=== PATIENT | female | born 1945 | race Caucasian/White ===

== ENCOUNTER → 2017-02-27 | Outpatient (CLI) | payer MEDICARE ==
[2016-08-23 14:30] VITALS: BP 123/67
[~2017-02-27] MED LIST: ALPR0.5T6 PO; ALPR1TAB10 PO; AMLO-254 PO; AMLO10TA2 PO; AMLO5TAB2 PO; ASPI-482 PO; ATOR10TA PO; CARV6.252 PO; CHOL10003 PO; DICY10CA3 PO; FENT1PAT15 TD; FISH1CAP PO; GABA-586 PO; GINK500C PO; GREEN TEA SLIM; HYDR-2758 PO; HYDR-971 PO; LACT1CAP29 PO; LEVO75TA5 PO; LOSA100T6 PO; METF500T PO; METH500T5 PO; MILN50TA PO; MULT1TAB52 PO; NAPR375T5 PO; OMEP20TA8 PO; POLY17PO29 PO; RANI300C PO; TRAZ50TA15 PO; TRIA15OI TP
--- NOTE | 2017-02-27 10:06 | KCIC ---
MRI Lumbar Spine without contrast History: Lumbar radiculopathy, numbness into the right leg for years worse in recent months Technique: Multiplanar, multi sequential noncontrast MR imaging was performed of the lumbar spine. Contrast: None Comparison: June 10, 2010 Findings: Lumbar vertebral body stature is mostly preserved other than multilevel small Schmorl's nodes. There is mild grade 1 anterior spondylolisthesis at L4-5, negligible anterior spondylolisthesis L5-S1 and L3-4. There is mild degenerative disc disease L3-4 and L4-5 mild disc desiccation L2-3. Conus terminates normally at L1-2. There are anterior annular tears at L3-4 and L4-5, posterior annular tear at L4-5. L2-L3: There is mild buckling of the ligamentum flavum. Neural foramina and spinal canal are adequate. L3-L4: There is mild facet hypertrophic change and buckling of the ligamentum flavum. There is very mild narrowing of the far left lateral recess. There is mild neural foramina compromise bilaterally. L4-L5: There is moderate to severe facet degenerative change and kymz-pb-zdsuestf buckling of the ligamentum flavum. There is overall depbaeym-an-ubsjzp spinal stenosis with lateral recess stenosis bilaterally, some preserved central subarachnoid space. There is moderate narrowing of the left neural foramen by minimal disc osteophyte complex as well as facet hypertrophic change, fqbg-uy-tququjvy narrowing on the right. L5-S1: There is fairly severe facet degenerative change. There is mild buckling of the ligamentum flavum. There is mild narrowing of the posterior far left lateral recess. There is mild narrowing of the left neural foramen, right neural foramen not significantly narrowed. Impression: 1. There is moderate to severe spinal stenosis at L4-5, some preserved central subarachnoid space. There is lateral recess stenosis bilaterally at this level somewhat greater on the left. 2. There is mild grade 1 anterior spondylolisthesis at L4-5, and to a lesser degree at L3-4 and L5-S1. There is multilevel lumbar facet degenerative change greater inferiorly. 3. There is ddwi-qz-fesupmsf neural foramina compromise bilaterally at L4-5, to a lesser degree bilaterally at L3-4 and on the left at L5-S1. 4. There is mild degenerative disc disease greatest at L3-4 and L4-5. Electronically signed by: Luis Segura MD (02/27/2017 10:03 AM)
== END | disposition home or self-care (01) ==
LOC: KCIC MRI 08:52
PROVIDERS: ATTEND Internal Medicine
DX: M51.36 Other intervertebral disc degeneration, lumbar region (principal); M43.16 Spondylolisthesis, lumbar region; M48.06 Spinal stenosis, lumbar region; M54.16 Radiculopathy, lumbar region
CPT/HCPCS: 72148

== ENCOUNTER → 2017-03-13 | Outpatient (CLI) | payer MEDICARE ==
[2016-08-23 14:30] VITALS: BP 123/67
[~2017-03-13] MED LIST changes: +CARV12.52 PO; +DICY10CA53 PO; +FURO40TA4 PO; +GLIP5TAB10 PO; +GLUC1TAB26 PO; +IOHEXOL 180 MG/ML 20ML VIAL. ONE; +OMEG1CAP6 PO; +POTA20TA82 PO; +TIZA2CAP PO; +methylPREDNISolone ACETATE 40 MG/ML VIAL. ONE; +methylPREDNISolone ACETATE 80 MG/ML VIAL. ONE
== END | disposition home or self-care (01) ==
LOC: PNCL 12:54
PROVIDERS: ATTEND Anesthesiology
DX: M51.36 Other intervertebral disc degeneration, lumbar region (principal); Z88.6 Allergy status to analgesic agent; Z88.0 Allergy status to penicillin; Z88.8 Allergy status to other drugs, medicaments and biological substances
CPT/HCPCS: 62323; J1030; J1040

== ENCOUNTER 2017-03-22 20:04 | Emergency (ER) | payer MEDICARE ==
[~2017-03-22] VITALS: Ht 165.1 cm; Wt 87.1 kg
[~2017-03-22 20:04] MED LIST changes: -IOHEXOL 180 MG/ML 20ML VIAL. ONE; -methylPREDNISolone ACETATE 40 MG/ML VIAL. ONE; -methylPREDNISolone ACETATE 80 MG/ML VIAL. ONE
--- NOTE | 2017-03-22 20:22 | ED.ADGEN ---
Past Medical History Past Medical History: Anxiety, Arthritis, DVT, Fibromyalgia, GERD, Heart Disease, Hypertension, Hyperthyroid, TIA Additional Past Medical Histor: fibramyalgia, bells palsy Past Surgical History: Appendectomy, Other Additional Past Surgical Histo: D&C, meniscus left Alcohol Use: None Drug Use: None Adult General Chief Complaint Chief Complaint: HEADACHE HPI HPI Patient is a 71 year old male with history of IV disease, hypertension, CVA, DVT, hyperthyroidism and fibromyalgia who presents with headache, described as right retro-orbital 2 days, left-sided neck pain reproducing with rotation and movement, and paresthesias over her entire body. Patient states it feels as though her body is numb. Symptoms began approximately 2 days ago. Patient denies motor weakness, change in vision recent changes medication. Blood sugars have been checked and are in the normal range. Patient states she has had similar symptoms in the past, but the cause was undiagnosed. She also reports feeling clammy. Denies chest pain, shortness of breath, nausea. No other acute symptoms or complaints. His PCP is Dr. Luis A Sanchez. Review of Systems Review of Systems Review symptoms as per history of present illness. All other review symptoms are negative. Current Medications Current Medications Current Medications Medications (Trade) Dose Ordered Sig/Sandra Start Time Stop Time Status Last Admin Dose Admin Ceftriaxone Sodium 1 gm/ Sodium Chloride 50 ml @ 100 mls/hr Q24H 03/23/17 21:00 Ceftriaxone Sodium 50 ml @ 100 mls/hr 1X ONCE 03/22/17 21:45 03/22/17 22:14 Diphenhydramine HCl (Benadryl) 25 mg 1X ONCE 03/22/17 20:30 03/22/17 20:31 DC 03/22/17 20:55 25 MG Metoclopramide HCl (Reglan) 10 mg 1X ONCE 03/22/17 20:30 03/22/17 20:31 DC 03/22/17 20:55 10 MG Allergies Allergies Allergies Coded Allergies Type Severity Reaction Last Updated Verified Penicillins Allergy Intermediate 08/01/15 Yes quinapril Allergy Intermediate 08/01/15 Yes codeine Allergy Mild Nausea, tolerates Lortab OK 08/23/15 Yes Physical Exam Physical Exam Constitutional: Well developed, well nourished, no acute distress, non-toxic appearance. HENT: Normocephalic, atraumatic, bilateral external ears normal, oropharynx moist, no oral exudates, nose normal. Eyes: PERRLA, EOMI, conjunctiva normal, no discharge. Neck: Normal range of motion, no tenderness, supple, no stridor. Cardiovascular:Heart rate regular rhythm, no murmur. Lungs & Thorax: Bilateral breath sounds clear to auscultation. Abdomen: Bowel sounds normal, soft, no tenderness. Skin: Warm, dry, no erythema, no rash. Back: No tenderness. Extremities: No tenderness. Neurologic: Alert and oriented X 3, right facial, paralysis, cranial nerves II through XII otherwise grossly intact normal, motor function, normal sensory function, no focal deficits noted. Psychologic: Affect normal, judgement normal, mood normal. Current Patient Data Vital Signs Vital Signs Date Time Temp Pulse Resp B/P (MAP) Pulse Ox O2 Delivery O2 Flow Rate FiO2 03/22/17 20:10 97.5 62 18 157/74 (101) 96 Room Air 97.5 Lab Values Laboratory Tests Test 03/22/17 20:30 03/22/17 20:35 Urine Collection Type Unknown Urine Color Yellow Urine Clarity Clear Urine pH 5.5 Urine Specific [place] 1.010 Urine Protein Negative mg/dL (NEG-TRACE) Urine Glucose (UA) Negative mg/dL (NEG) Urine Ketones (Stick) Negative mg/dL (NEG) Urine Blood Negative (NEG) Urine Nitrite Negative (NEG) Urine Bilirubin Negative (NEG) Urine Urobilinogen Dipstick 0.2 mg/dL (0.2 mg/dL) Urine Leukocyte Esterase Moderate (NEG) Urine RBC 0 /HPF (0-2) Urine WBC 11-20 /HPF (0-4) Urine Squamous Epithelial Cells Few /LPF Urine Bacteria Few /HPF (0-FEW) White Blood Count 11.4 x10^3/uL (4.0-11.0) H Red Blood Count 4.17 x10^6/uL (3.50-5.40) Hemoglobin 12.7 g/dL (12.0-15.5) Hematocrit 38.8 % (36.0-47.0) Mean Corpuscular Volume 93 fL (79-100) Mean Corpuscular Hemoglobin 30 pg (25-35) Mean Corpuscular Hemoglobin Concent 33 g/dL (31-37) Red Cell Distribution Width 14.0 % (11.5-14.5) Platelet Count 260 x10^3/uL (140-400) Neutrophils (%) (Auto) 66 % (31-73) Lymphocytes (%) (Auto) 25 % (24-48) Monocytes (%) (Auto) 6 % (0-9) Eosinophils (%) (Auto) 3 % (0-3) Basophils (%) (Auto) 0 % (0-3) Neutrophils # (Auto) 7.5 x10^3uL (1.8-7.7) Lymphocytes # (Auto) 2.9 x10^3/uL (1.0-4.8) Monocytes # (Auto) 0.6 x10^3/uL (0.0-1.1) Eosinophils # (Auto) 0.4 x10^3/uL (0.0-0.7) Basophils # (Auto) 0.0 x10^3/uL (0.0-0.2) Sodium Level 140 mmol/L (136-145) Potassium Level 3.6 mmol/L (3.5-5.1) Chloride Level 102 mmol/L (98-107) Carbon Dioxide Level 32 mmol/L (21-32) Anion Gap 6 (6-14) Blood Urea Nitrogen 19 mg/dL (7-20) Creatinine 1.2 mg/dL (0.6-1.0) H Estimated GFR (Cockcroft-Gault) 44.4 BUN/Creatinine Ratio 16 (6-20) Glucose Level 168 mg/dL (70-99) H Calcium Level 9.0 mg/dL (8.5-10.1) Total Bilirubin 0.5 mg/dL (0.2-1.0) Aspartate Amino Transferase (AST) 17 U/L (15-37) Alanine Aminotransferase (ALT) 22 U/L (14-59) Alkaline Phosphatase 95 U/L (46-116) Total Protein 7.4 g/dL (6.4-8.2) Albumin 3.9 g/dL (3.4-5.0) Albumin/Globulin Ratio 1.1 (1.0-1.7) Thyroid Stimulating Hormone (TSH) 2.164 uIU/mL (0.358-3.74) Laboratory Tests 03/22/17 20:35 Laboratory Tests 03/22/17 20:35 EKG EKG [] Radiology/Procedures Radiology/Procedures [CT head: No acute intracranial disease per radiology report] Course & Med Decision Making Course & Med Decision Making Pertinent Labs and Imaging studies reviewed. (See chart for details) [UTI likely contributing to headache and myalgias. Patient symptoms improved significantly with treatment of headache. IV antibiotics given for urinary tract infection. Patient resting comfortably at time of discharge home. PCP follow-up recommended. Return precautions reviewed.] Dragon Disclaimer Dragon Disclaimer This electronic medical record was generated, in whole or in part, using a voice recognition dictation system. PATSY NARVAEZ DO Mar 22, 2017 20:22
[2017-03-22] MEDS ORDERED: METOCLOPRAMIDE HCL 10 MG/2 ML VIAL. IV ONE (20:30)
[2017-03-22] MEDS ORDERED: diphenhydrAMINE 50 MG/ML VIAL IVP ONE (20:30)
[2017-03-22 20:46] LABS: BASO % 0 % (0-3); EOS % 3 % (0-3); HEMATOCRIT 38.8 % (36.0-47.0); HEMOGLOBIN 12.7 g/dL (12.0-15.5); LYMPH # 2.9 x10^3/uL (1.0-4.8); LYMPH % 25 % (24-48); MEAN CORPUSCULAR HEMOGLOBIN 30 pg (25-35); MEAN CORPUSCULAR HGB CONC 33 g/dL (31-37); MEAN CORPUSCULAR VOLUME 93 fL (79-100); MONO % 6 % (0-9); NEUT % 66 % (31-73); PLATELET COUNT 260 x10^3/uL (140-400); RED BLOOD COUNT 4.17 x10^6/uL (3.50-5.40); WHITE BLOOD COUNT 11.4 x10^3/uL (4.0-11.0)
[2017-03-22 20:46] LABS: BILIRUBIN,URINE NEGATIVE (NEG); GLUCOSE,URINE NEGATIVE (NEG); NITRITE,URINE NEGATIVE (NEG); PH,URINE 5.5; PROTEIN,URINE NEGATIVE (NEG-TRACE); UROBILINOGEN,URINE 0.2 mg/dL (0.2 mg/dL)
[2017-03-22 20:54] LABS: BACTERIA,URINE FEW /HPF (0-FEW); RBC,URINE 0 /HPF (0-2); SQUAMOUS EPITHELIAL CELL,UR FEW /LPF
[2017-03-22 21:04] LABS: CREATININE 1.2 mg/dL (0.6-1.0); GFR 44.4; POTASSIUM 3.6 mmol/L (3.5-5.1)
--- NOTE | 2017-03-22 21:09 | RAD ---
CT HEAD PQRS STATEMENT: One or more of the following in the visualized dose reduction techniques were utilized for this study: 1. Automatic exposure control, 2. Adjustment of the mA and/or kV according to patient size, 3. Use of iterative reconstruction technique INDICATION: sever patel behind R eye h/o [place] h/o TIA r side facial drooping prev sent no contrast COMPARISON: 07/31/2015 TECHNIQUE: 5 mm contiguous axial images were obtained from the skull base to the vertex in both bone and soft tissue algorithm. FINDINGS: No abnormal attenuation within the brain parenchyma. No evidence of intracranial hemorrhage. No extra-axial fluid collections. No mass effect or midline shift. Ventricular size is appropriate. Basal cisterns are patent. No fractures identified.Toro-white differentiation is preserved.Globes and orbits are within normal limits. Paranasal sinuses and mastoid air cells are clear. IMPRESSION: No acute intracranial abnormality. Electronically signed by: Michael Alva MD (03/22/2017 9:06 PM) [facility]
[2017-03-22 21:10] LABS: ALBUMIN 3.9 g/dL (3.4-5.0); ALBUMIN/GLOBULIN RATIO 1.1 (1.0-1.7); TOTAL BILIRUBIN 0.5 mg/dL (0.2-1.0); TOTAL PROTEIN 7.4 g/dL (6.4-8.2)
[2017-03-22 21:53] VITALS: BP 131/61
--- NOTE | 2017-03-23 10:36 | EKG ---
[facility] [address] [place] [address] Test Date: 2017-03-22 Test Time: 20:21:27 Pat Name: JOSE SHAW Department: Room: Gender: F Nail Sticker: : [id number] Requested By: PATSY NARVAEZ Order Number: [id number] Reading MD: Measurements Intervals [place] Rate: 62 P: -38 DE: 158 QRS: -12 QRSD: 90 T: 4 QT: 414 QTc: 422 Interpretive Statements SINUS RHYTHM LEFTWARD AXIS QRS(T) CONTOUR ABNORMALITY CONSISTENT WITH ANTEROSEPTAL INFARCT AGE UNDETERMINED ABNORMAL ECG RI6.01 No previous ECG available for comparison
== END 2017-03-22 22:18 | disposition home or self-care (01) ==
LOC: ER 20:04
DX: R51 Headache (principal); M54.2 Cervicalgia; R20.9 Unspecified disturbances of skin sensation; I11.9 Hypertensive heart disease without heart failure; K21.9 Gastro-esophageal reflux disease without esophagitis; Z86.73 Personal history of transient ischemic attack (TIA), and cerebral infarction without residual deficits; Z86.718 Personal history of other venous thrombosis and embolism; E05.90 Thyrotoxicosis, unspecified without thyrotoxic crisis or storm; M79.7 Fibromyalgia; F41.9 Anxiety disorder, unspecified; M19.90 Unspecified osteoarthritis, unspecified site; Z88.0 Allergy status to penicillin; Z88.5 Allergy status to narcotic agent; Z88.8 Allergy status to other drugs, medicaments and biological substances
CPT/HCPCS: 36415; 70450; 80053; 81001; 84443; 85027; 87086; 93005; 96365; 96375; 99285; J0690; J1200; J2765

== ENCOUNTER → 2017-03-27 | Outpatient (CLI) | payer MEDICARE ==
[2017-03-22 21:53] VITALS: BP 131/61
[~2017-03-27] MED LIST changes: +IOHEXOL 180 MG/ML 10 ML VIAL. ONE; +methylPREDNISolone ACETATE 40 MG/ML VIAL. ONE; +methylPREDNISolone ACETATE 80 MG/ML VIAL. ONE
== END | disposition home or self-care (01) ==
LOC: PNCL 10:46
PROVIDERS: ATTEND Anesthesiology
DX: M51.16 Intervertebral disc disorders with radiculopathy, lumbar region (principal); M48.06 Spinal stenosis, lumbar region; I10 Essential (primary) hypertension; M19.90 Unspecified osteoarthritis, unspecified site; E03.9 Hypothyroidism, unspecified; F41.9 Anxiety disorder, unspecified; Z86.69 Personal history of other diseases of the nervous system and sense organs; Z86.73 Personal history of transient ischemic attack (TIA), and cerebral infarction without residual deficits; Z88.6 Allergy status to analgesic agent; Z88.0 Allergy status to penicillin
CPT/HCPCS: 62323; J1030; J1040

== ENCOUNTER → 2017-04-10 | Outpatient (CLI) | payer MEDICARE ==
[2017-03-22 21:53] VITALS: BP 131/61
--- NOTE | 2017-04-10 23:57 | PN ---
DATE: 04/10/2017 PROGRESS NOTE FOR PAIN CLINIC DIAGNOSES: Lumbar radiculopathy with lumbar spinal stenosis, lumbar degenerative disk disease. HISTORY OF PRESENT ILLNESS: The patient is a 71-year-old female who returns for followup status post lumbar epidural steroid injection x 2. The patient reports about 70% improvement overall in her low back and bilateral lower extremity pain. The patient reports still some pain with walking and standing, change in positions, but much better than it was, still some numbness sensation in the low back as well, but no loss of motor function. No bowel or bladder incontinence. The patient reports aching and tingling with radiating pain rated at 8 on a scale of 10 at its worst, is currently 6 on a scale of 10 today. The patient reports no new motor or sensory deficits, no new bowel or bladder incontinence, still pain with activities and walking, but has been increasing activity with greater ease and comfort much more than she had and much more comfortably. PHYSICAL EXAMINATION: VITAL SIGNS: Today, the patient's blood pressure is 116/78, pulse 79, respirations 18, temperature is 97.8 degrees Fahrenheit. Height is 5 feet 5 inches, weight is 202 pounds. GENERAL: The patient is awake, alert, oriented, appropriate, has a very pleasant demeanor. HEENT: Head shows normocephalic, atraumatic. Extraocular movements are intact and symmetrical. Oral cavity: Mucous membranes moist and pink. Dentition is intact. NECK: Shows anterior throat supple. CHEST: Shows normal on inspection. Breath sounds clear to auscultation bilaterally. HEART: Shows S1 and S2 clear. ABDOMEN: Soft, nontender, nondistended. BACK: Shows spine grossly in the midline. Lumbar paraspinous musculature shows symmetrical on inspection with normal lordotic curvature, with palpation shows some moderate tenderness only diffusely in the lower lumbar distribution bilaterally without radiation and essentially symmetrical. No difficulty with rotational motion both laterally greater than 10 degrees right and left as well as extension greater than 10 degrees and forward flexion 45 degrees without difficulty. EXTREMITIES: Lower extremities showed deep tendon reflexes at 1+/4 in the patellar and tendo calcaneus tendons. Motor exam is strong with 5/5 dorsiflexion, extension, quadriceps and hamstring flexion equal. Options were discussed with the patient and the patient's old chart was reviewed as her current medication regimen and updated. Current review of systems updated today as well. We will proceed with a third in the series of lumbar epidural steroid injection with fluoroscopic guidance today. Risks were again discussed including, but not limited to bleeding, infection, possibility of epidural hematoma, subsequent neurologic compromise, dural puncture, headaches, spinal cord and/or nerve damage, side effects of steroid medication and poor results regarding pain control. The patient understands and wishes to proceed. The patient will return to clinic in approximately 2 weeks for followup, was counseled on return appointment, activity level and side effects to be aware of. DIAGNOSES: Lumbar radiculopathy with lumbar degenerative disk disease and lumbar spinal stenosis. PROCEDURE: Lumbar epidural steroid injection using C-arm fluoroscopic guidance under sterile prep and drape using local anesthetic at the L4-L5 level, translaminar approach. Medication injected is 120 mg of Depo-Medrol plus 10 mL preservative-free normal saline and 2 mL of Isovue for contrast. CONDITION AT DISCHARGE: Stable. The patient tolerated procedure well, had no complications. CANDI RICCI MD DR: ELO/talib JOB#: [id number] / [id number]
== END | disposition home or self-care (01) ==
LOC: PNCL 10:39
PROVIDERS: ATTEND Anesthesiology
DX: M51.16 Intervertebral disc disorders with radiculopathy, lumbar region (principal); M48.06 Spinal stenosis, lumbar region; I82.4Z2 Acute embolism and thrombosis of unspecified deep veins of left distal lower extremity; M19.90 Unspecified osteoarthritis, unspecified site; E03.9 Hypothyroidism, unspecified; F41.9 Anxiety disorder, unspecified; Z86.69 Personal history of other diseases of the nervous system and sense organs; Z83.3 Family history of diabetes mellitus; Z86.73 Personal history of transient ischemic attack (TIA), and cerebral infarction without residual deficits; Z82.49 Family history of ischemic heart disease and other diseases of the circulatory system; Z88.6 Allergy status to analgesic agent; Z88.0 Allergy status to penicillin
CPT/HCPCS: 62323; J1030; J1040

== ENCOUNTER 2017-06-24 11:58 | Emergency (ER) | payer MEDICARE ==
[~2017-06-24] VITALS: Ht 163.8 cm; Wt 89.8 kg
[~2017-06-24 11:58] MED LIST changes: -AMLO-254 PO; +AMLO-268 PO; -IOHEXOL 180 MG/ML 10 ML VIAL. ONE; -methylPREDNISolone ACETATE 40 MG/ML VIAL. ONE; -methylPREDNISolone ACETATE 80 MG/ML VIAL. ONE
[2017-06-24] MEDS ORDERED: IBUPROFEN 600 MG TABLET. PO ONE (13:15)
[2017-06-24] MEDS ORDERED: ACETAMINOPHEN 500 MG TABLET PO ONE (13:15)
--- NOTE | 2017-06-24 13:19 | PHYS DOC ---
Past Medical History Past Medical History: Anxiety, Arthritis, DVT, Fibromyalgia, GERD, Heart Disease, Hypertension, Hyperthyroid, TIA Additional Past Medical Histor: fibramyalgia, bells palsy, lumbar stenosis, neuropathy, DDD Past Surgical History: Appendectomy, Other Additional Past Surgical Histo: D&C, meniscus left Alcohol Use: None Drug Use: None Adult General Chief Complaint Chief Complaint: KNEE INJURY HPI HPI Is a pleasant 72-year-old female with history of fibromyalgia, chronic lower extremity arthritis, degenerative joint changes, chronic lumbar stenosis, or TIA , prior DVT, hypertension, hyperlipidemia who presents with a 2 to three-day history increasing right knee pain with localized swelling in the calf. Patient but she is having difficulty walking secondary to pain described as a dull aching throbbing is gotten progressively worse with range of motion at the knee. She called her primary care doctor Dr. Chin today and their staff informed to come the emergency department mainly for an MRI of the leg. She has no neurologic deficits, no actual trauma to the leg. Patient says pain is worse with range of motion and direct pressure on the knee. Patient denies any change in skin color rash or fevers. Patient denies any nausea, vomiting, new weakness in the lower leg. Taken anything for pain. Review of Systems Review of Systems Constitutional: Denies fever or chills [] Eyes: Denies change in visual acuity, redness, or eye pain [] HENT: Denies nasal congestion or sore throat [] Respiratory: Denies cough or shortness of breath [] Cardiovascular: No additional information not addressed in HPI [] GI: Denies abdominal pain, nausea, vomiting, bloody stools or diarrhea [] : Denies dysuria or hematuria [] Musculoskeletal: complains of chronic lower back pain chronic joint pain from arthritis. Integument: Denies rash or skin lesions [] Neurologic: Denies headache, focal weakness or sensory changes [] Endocrine: Denies polyuria or polydipsia [] Current Medications Current Medications Current Medications Medications (Trade) Dose Ordered Sig/Sandra Start Time Stop Time Status Last Admin Dose Admin Acetaminophen (Tylenol) 1,000 mg 1X ONCE 06/24/17 13:15 06/24/17 13:16 DC 06/24/17 13:20 1,000 MG Ibuprofen (Motrin) 600 mg 1X ONCE 06/24/17 13:15 06/24/17 13:16 DC 06/24/17 13:20 600 MG Allergies Allergies Allergies Coded Allergies Type Severity Reaction Last Updated Verified Penicillins Allergy Intermediate 08/01/15 Yes quinapril Allergy Intermediate 08/01/15 Yes codeine Allergy Mild Nausea, tolerates Lortab OK 08/23/15 Yes Physical Exam Physical Exam Vital signs recorded on the chart within normal limits. Constitutional: Well developed, well nourished, no acute distress, non-toxic appearance. [] Skin: Warm, dry, no erythema, no rash. [] Back: No tenderness, no CVA tenderness. [] Extremities: She has marked tenderness to palpation on the calf. Positive Homans sign. Patient has soft tissue swelling and tenderness along the anterior patella with no redness or warmth. Patient has an anterior and posterior draw tests is negative, negative Mikel's, negative Rodrigo's test. Patient has normal sensation to light touch and appropriate senior receptionist of the lower leg. Brisk capillary refill +2. Patient has brisk peripheral pulses at the dorsalis pedis, posterior tibialis and popliteal arteries. No palpable cords are noted Neurologic: Alert and oriented X 3, normal motor function, normal sensory function, no focal deficits noted. [] Psychologic: Affect normal, judgement normal, mood normal she is somewhat anxious. But appropriate Current Patient Data Vital Signs Vital Signs Date Time Temp Pulse Resp B/P (MAP) Pulse Ox O2 Delivery O2 Flow Rate FiO2 06/24/17 14:04 69 18 132/78 (96) 99 Room Air 06/24/17 13:00 98.3 98.3 EKG EKG [] Radiology/Procedures Radiology/Procedures [] [facility] [address] [place] [address] IMAGING REPORT Signed PATIENT: JOSE NYE ACCOUNT: [id number] : 1945 LOCATION: ER AGE: 72 SEX: F EXAM STATUS: REG ER ORD. PHYSICIAN: YAIR SOTO MD REASON: knee pain and local swelling PROCEDURE: KNEE RIGHT 3V 3 views right knee 06/24/2017 3:09 PM Indication: knee pain and local swelling Comparison: None available Findings: No fracture or dislocation is identified. A small suprapatellar joint effusion is noted. There are tricompartmental degenerative changes including mild medial lateral compartment narrowing, chondral calcification, and extensive patellofemoral osteophyte formation likely joint space narrowing. Impression: 1. Small suprapatellar joint effusion 2. Tricompartmental degenerative change, most prominent in the suprapatellar region. 3. An acute osseous abnormality is not identified. DICTATED and SIGNED BY: NATHANIEL CAMARGO MD DATE: 06/24/17 [id number] CC: YAIR SOTO MD; CHEO CHIN MD ~ Course & Med Decision Making Course & Med Decision Making Pertinent Labs and Imaging studies reviewed. (See chart for details) She presents with right lower leg pain and swelling in the calf and knee pain. She has a history of lumbar denies this with chronic degenerative joint changes and arthritis. She comes in with worsening swelling below her kneecap without fevers, chills redness or swelling with rash. Patient denies any specific trauma to her knee. Her evaluation my differential diagnosis included but not limited to os or arthritis, rheumatoid arthritis, septic joint, localized tibial plateau fracture , joint effusion, joint or ligamentous injury or damage, DVT, compartment syndrome, myositis, or localized cellulitis. She was given some Tylenol here orally which is what she can tolerate at home. Patient feels more comfortable with no obvious fracture on x-ray and no obvious DVT on ultrasound. Patient will be immobilized given crutches and asked to follow-up with her primary care doctor for referral for possible MRI as suggested by the triage nurse at her clinic. [] [facility] [address] [place] [address] IMAGING REPORT Signed PATIENT: JOSE NYE ACCOUNT: [id number] : 1945 LOCATION: ER AGE: 72 SEX: F EXAM STATUS: REG ER ORD. PHYSICIAN: YAIR SOTO MD REASON: leg pain and swelling in calf PROCEDURE: VENOUS LOWER EXTREMITY RIGHT Clinical Indication: Right lower extremity pain, greatest about the knee Technique: Study is dated June 24, 2017. Grayscale, color flow and spectral waveform analysis was performed of the right lower extremity with and without compression. Findings: There is normal compressibility of all visualized vein segments. No evidence of DVT is present on grayscale or color images. There is normal phasicity of waveform. There is normal augmentation. Impression: No evidence of deep vein thrombosis. DICTATED and SIGNED BY: PABLO NICOLAS MD DATE: 06/24/17 1428 CC: YAIR SOTO MD; CHEO CHIN MD ~ Impression: Knee pain, patellar joint effusion. Dragon Disclaimer Dragon Disclaimer This electronic medical record was generated, in whole or in part, using a voice recognition dictation system. Departure Departure Impression: Primary Impression: Effusion of patella Additional Impressions: Knee pain Leg pain Disposition: HOME, SELF-CARE Condition: IMPROVED Referrals: CHEO CHIN MD (PCP) Patient Instructions: Knee Effusion, Knee Pain Additional Instructions: My discharge plan Follow up: In addition patient is asked to followup with their primary doctor, within a week for followup examination and to address patient's ongoing medical conditions. Patient is advised that in the Emergency Department primary complaints are addressed and only in light of known signs and symptoms. Patient should return immediately to the emergency department if new signs and symptoms develop or patient's condition worsens in any way. At time of discharge patient was in stable condition and had verbalized understanding of the discharge instructions. Although there is no acute fracture noted on x-ray today this does not mean subtle fractures are not missed on initial presentation. If your symptoms are not improved within 1 week or if symptoms worsen despite oral treatment with pain medications I would advise follow-up with your primary care doctor to have a repeat set of x-rays completed to ensure no subtle fractures were missed. Please understand that sometimes x-rays are missed red and if there is a misreading of your x-rays she will be contacted by the emergency room physician to talk about appropriate treatment. Scripts Acetaminophen (TYLENOL) 325 Mg Tablet 1-2 TAB PO QID, #60 TAB 2 Refills Prov: YAIR SOTO MD 06/24/17 Problem Qualifiers YAIR SOTO MD Jun 24, 2017 13:19
--- NOTE | 2017-06-24 13:52 | RAD ---
3 views right knee 06/24/2017 3:09 PM Indication: knee pain and local swelling Comparison: None available Findings: No fracture or dislocation is identified. A small suprapatellar joint effusion is noted. There are tricompartmental degenerative changes including mild medial lateral compartment narrowing, chondral calcification, and extensive patellofemoral osteophyte formation likely joint space narrowing. Impression: 1. Small suprapatellar joint effusion 2. Tricompartmental degenerative change, most prominent in the suprapatellar region. 3. An acute osseous abnormality is not identified.
--- NOTE | 2017-06-24 14:32 | RAD ---
Clinical Indication: Right lower extremity pain, greatest about the knee Technique: Study is dated June 24, 2017. Grayscale, color flow and spectral waveform analysis was performed of the right lower extremity with and without compression. Findings: There is normal compressibility of all visualized vein segments. No evidence of DVT is present on grayscale or color images. There is normal phasicity of waveform. There is normal augmentation. Impression: No evidence of deep vein thrombosis.
[2017-06-24] MEDS ORDERED: ACET325T9 PO ×2 (15:17→15:18)
[2017-06-24 16:05] VITALS: BP 134/98
== END 2017-06-24 16:14 | disposition home or self-care (01) ==
LOC: ER 11:58
DX: M25.461 Effusion, right knee (principal); I11.9 Hypertensive heart disease without heart failure; E78.5 Hyperlipidemia, unspecified; K21.9 Gastro-esophageal reflux disease without esophagitis; M79.7 Fibromyalgia; E05.90 Thyrotoxicosis, unspecified without thyrotoxic crisis or storm; M19.90 Unspecified osteoarthritis, unspecified site; Z86.718 Personal history of other venous thrombosis and embolism; Z86.73 Personal history of transient ischemic attack (TIA), and cerebral infarction without residual deficits; Z90.49 Acquired absence of other specified parts of digestive tract; Z88.0 Allergy status to penicillin; Z88.5 Allergy status to narcotic agent; Z88.8 Allergy status to other drugs, medicaments and biological substances
CPT/HCPCS: 29505; 73562; 93971; 99284-25

== ENCOUNTER → 2018-05-27 | Day surgery (SDC) | payer MEDICARE ==
[~2018-05-27] MED LIST changes: +ACET325T9 PO; -AMLO10TA2 PO; +AMLO10TA6 PO; -AMLO5TAB2 PO; +AMLO5TAB7 PO; +GLIM1TAB2 PO; +GLYCOPYRROLATE 1 MG/5 ML VIAL. ONE; +HYDR12.58 PO; +IV RINGERS,LACTATED 1000ML 1,000 ML IV SCH; +LIDOCAINE 1% PF 2 ML VIAL. ID PRN; +LIDOCAINE 2% PF Vial for OR 5 ML VIAL. ONE; -LOSA100T6 PO; +LOSA100T7 PO; +ONDANSETRON PF 4 MG/2 ML VIAL. IV PRN; +PROCHLORPERAZINE 10 MG/2 ML VIAL. IV PRN; +PROPOFOL 20 ML IV ONE; +PROPOFOL 40 ML IV ONE; +TRAZ-85 PO; -TRAZ50TA15 PO; +ePHEDrine PF IN SALINE 50 MG/5 ML DISP.SYRIN IV ONE; +fentaNYL PF VIAL 100 MCG/2 ML VIAL IV PRN
--- NOTE | 2018-05-27 09:10 | PDOC1 ---
HISTORY & PHYSICAL H&P Karo Botello [id number] 1945 05/21/2018 01:00 PM 09/09 [facility] OUR PATIENTS COME FIRST [address] [place] [address]. [phone] Patient: Karo Botello Date of : 1945 Date: 05/21/2018 1:00 PM Visit Type: Office Visit This 73 year old female presents for irritable bowel syndrome and dysphagia. History of Present Illness: 1. irritable bowel syndrome Additional information: Patient has IBS and at time issue with stomach cramps and diarrhea. Karo Botello is a 73 year old female who presents for evaluation of dysphagia. The problem is ongoing. The onset was gradual. The severity is mild. The symptoms happen with solids more than liquids. She describes food sticking in the mid chest. The symptoms are felt to be related to Had issue before and had dilation done before.. There are no aggravating factors. There are no relieving factors. The patient's pertinent procedure. Had EGD and dilation in 2011. INTAKE COMMENTS: Intake Comments: patients stays she is here for her IBS PROBLEM LIST: Problem Description Onset Date Chronic Clinical Status Notes Gastroesophageal reflux disease 12/28/2013 [facility] Mapped from [facility] Chronic Conditions table on 03/29/2014 by the ICD9 to SNOMED Bulk Mapping Utility. The mapped diagnosis code was GERD, 530.81, added by Luis A Sanchez, with responsible provider Luis A Sanchez MD. Onset date 12/28/2013; last addressed on 12/28/2013. Diverticular disease of colon 05/13/2012 [facility] from [facility] Chronic Conditions table on 03/29/2014 by the ICD9 to SNOMED Bulk Mapping Utility. The mapped diagnosis code was Diverticulosis of colon (without mention of hemorr, 562.10, added by Rachel Prabhakar, with responsible provider Rich Ribeiro MD. Onset date 05/13/2012; last addressed on 05/13/2012. Osteoarthritis of knee 12/23/2012 [facility] M[facility] from [facility] Chronic Conditions table on 03/29/2014 by the ICD9 to SNOMED Bulk Mapping Utility. The mapped diagnosis code was Osteoarthrosis, unspecified whether generalized or, 715.96, added by Martinez Kessler, with responsible provider Martinez Kessler MD. Onset date 12/23/2012; last addressed on 02/25/2014. Essential hypertension 06/09/2012 [facility] Mapped from [facility] Chronic Conditions table on 03/29/2014 by the ICD9 to SNOMED Bulk Mapping Utility. The mapped diagnosis code was Hypertension, 401.9, added by Luis A Sanchez, with responsible provider Luis A Sanchez MD. Onset date 06/09/2012; last addressed on 2013. Cervical strain, acute, initial encounter 12/23/2015 Type 2 diabetes mellitus without complication 08/15/2015 Finger laceration, initial encounter 10/03/2015 Flu syndrome 11/23/2015 Type 2 diabetes mellitus with peripheral neuropathy 05/07/2016 Leg swelling 04/30/2016 Hyperlipidemia LDL goal <100 09/14/2015 Uncontrolled diabetes mellitus 01/10/2016 Acute bronchitis with bronchospasm 11/23/2015 Hypothyroidism 06/25/2014 N Rash 07/13/2015 Acute bacterial sinusitis 10/03/2015 Right leg swelling 07/13/2015 Pain in right knee 07/13/2015 Swelling of left lower extremity 07/13/2015 Swelling of right lower extremity 07/13/2015 Pain in left knee 07/13/2015 Abnormality of gait 07/19/2015 Fibromyalgia 08/18/2013 Y Mapped from [facility] Chronic Conditions table on 2013 by Gautam Dias. The mapped diagnosis code was Fibromyalgia,729.1, added by Luis A Sanchez , with responsible provider Luis A Sanchez MD. Onset date 08/18/2013; last addressed on 02/25/2014. PAST MEDICAL/SURGICAL HISTORY (Detailed) Disease/disorder Onset Date Management Date Comments Colonic polyps 10/30/2011 colonoscopy with polypectomy 10/30/2011 Stenosis of the esophagus 10/30/2011 EGD with dilation 10/30/2011 Diverticulosis 10/30/2011 Internal hemorrhoids 10/30/2011 deep vein thrombosis left leg 2004 reflex esophagitis 2003 Diverticular disease Colonoscopy 12/07/2014 abdominal hernia repair 05/24/2011 Gastritis EGD 11/24/2010 Colonoscopy 05/23/2010 sleep apnea lumbar spondylosis obesity Hyperlipidemia Hypertension Osteoarthritis Depression Arthrocentesis of the left knee joint athroscopic repair of torn left medial meniscus Arthrocentesis of the right knee joint Arthrocentesis of the right knee joint Arthrocentesis of the left knee joint Arthrocentesis of the right knee joint Arthrocentesis of the left knee joint hypothyroidism Arthrocentesis of the right knee joint Arthrocentesis of the left knee joint Arthrocentesis of the right knee joint Arthrocentesis of the left knee joint Fibromyalgia Delgadillo's palsy D&C Appendectomy blood clot Arthrocentesis of the right knee joint Arthrocentesis of the left knee joint neuromuscular disease reflux GYNECOLOGIC HISTORY: Patient is postmenopausal. Family History (Detailed) Relationship Family Member Name Age at Condition Onset Age Cause of Mother Osteoporosis N Mother Osteoarthritis N Sister Rheumatoid arthritis N Social History: (Detailed) The patient is right-handed. Preferred language is Setswana. Language spoken at home is Setswana. The patient does not need an furniture upholsterer. Born in [facility]. EDUCATION/EMPLOYMENT/OCCUPATION The patient has a(n) college graduate education. 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 CHILDREN Has children: Tobacco use status: Never smoked tobacco. Smoking status: Never smoker. TOBACCO CESSATION INFORMATION Date Counseled By Order Status Description Code Tobacco Cessation Information 04/03/2012 [facility] cessation counseling completed Tobacco cessation counseling 04/21/2012 [facility] Tobacco cessation counseling completed Tobacco cessation counseling 05/13/2012 [facility] Tobacco cessation counseling completed Tobacco cessation counseling 05/20/2012 [facility] Tobacco cessation counseling completed Tobacco cessation counseling 12/09/2012 [facility] Tobacco cessation counseling completed Tobacco cessation counseling TOBACCO/VAPING EXPOSURE No passive smoke exposure. ALCOHOL There is no history of alcohol use. CAFFEINE The patient uses caffeine: coffee and tea. - 2 cups a day. LIFESTYLE DIET diabetic. The patient reports there are animals in the home. PETS dogs. The patient cleans up after the animal(s). HOME ENVIRONMENT/SAFETY The home has smoke detectors. No carbon monoxide detector at home. The home does not have radon present. Uses seat belts. EXPERIENCE Patient has no experience. Medications (active prior to today) Medication Name Sig Description Start Date Stop Date Refilled Rx Elsewhere Multiple Vitamin Tab take 1 tablet by ORAL route every day with food 2009 N aspirin 81 mg Tab take 1 tablet (81MG) by ORAL route every day 05/02/2010 N ONETOUCH VERIO HAO USE ONE STRIP TO CHECK GLUCOSE TWICE DAILY 04/01/20172016 N hydrochlorothiazide 25 mg tablet take 1 tablet by oral route every day 201710/30/2017 N levothyroxine 75 mcg tablet 1 PO QD 11/21/2017 11/21/2017 N RANITIDINE 300MG TAB TAKE ONE TABLET BY MOUTH ONCE DAILY AT BEDTIME 201712/26/2017 N OneTouch Delica Lancets 33 gauge USE ONE TO CHECK GLUCOSE TWICE DAILY DX: E11.42 NPI#[id number] 12/31/2017 12/31/2017 N ATORVASTATIN 10MG TAB TAKE ONE-HALF TABLET BY MOUTH AT BEDTIME 03/21/2018 N glimepiride 1 mg tablet take 1 tablet by oral route every day 04/15/201804/15 N losartan 100 mg tablet TAKE 1/2 TABLET BY MOUTH ONCE DAILY 04/30/20182017 N SAVELLA 50MG TAB TAKE ONE TABLET BY MOUTH TWICE DAILY 05/07/2018 05/07/2018 N alprazolam 1 mg tablet 1/2 tab bid and 2 tab at hs 05/13/2018 05/13/2018 N trazodone 50 mg tablet take 3 tablets qHS 05/14/2018 05/14/2018 N Medication Reconciliation Medications reconciled today. Medication Reviewed Adherence Medication Name Sig Desc Elsewhere Status taking as directed Multiple Vitamin Tab take 1 tablet by ORAL route every day with food N Verified taking as directed ONETOUCH VERIO HAO USE ONE STRIP TO CHECK GLUCOSE TWICE DAILY N Verified taking as directed aspirin 81 mg Tab take 1 tablet (81MG) by ORAL route every day N Verified taking as directed hydrochlorothiazide 25 mg tablet take 1 tablet by oral route every day N Verified taking as directed levothyroxine 75 mcg tablet 1 PO QD N Verified taking as directed RANITIDINE 300MG TAB TAKE ONE TABLET BY MOUTH ONCE DAILY AT BEDTIME N Verified taking as directed ATORVASTATIN 10MG TAB TAKE ONE-HALF TABLET BY MOUTH AT BEDTIME N Verified taking as directed OneTouch Delica Lancets 33 gauge USE ONE TO CHECK GLUCOSE TWICE DAILY DX:E11.42 NPI#[id number] N Verified taking as directed glimepiride 1 mg tablet take 1 tablet by oral route every day N Verified taking as directed losartan 100 mg tablet TAKE 1/2 TABLET BY MOUTH ONCE DAILY N Verified taking as directed SAVELLA 50MG TAB TAKE ONE TABLET BY MOUTH TWICE DAILY N Verified taking as directed alprazolam 1 mg tablet 1/2 tab bid and 2 tab at hs N Verified taking as directed trazodone 50 mg tablet take 3 tablets qHS N Verified Medications (Added, Continued or Stopped today) Start Date Medication Directions PRN Status PRN Reason Instruction Stop Date 05/13/2018 alprazolam 1 mg tablet 1/2 tab bid and 2 tab at hs N must last 30 days - Pharmacy had refill from 08/2017 still on file - FYI 05/02/2010 aspirin 81 mg Tab take 1 tablet (81MG) by ORAL route every day N 03/21/2018 ATORVASTATIN 10MG TAB TAKE ONE-HALF TABLET BY MOUTH AT BEDTIME N 04/15/2018 glimepiride 1 mg tablet take 1 tablet by oral route every day N 10/30/2017 hydrochlorothiazide 25 mg tablet take 1 tablet by oral route every day N 11/21/2017 levothyroxine 75 mcg tablet 1 PO QD N 90 day supply 04/30/2018 losartan 100 mg tablet TAKE 1/2 TABLET BY MOUTH ONCE DAILY N 05/02/2010 Multiple Vitamin Tab take 1 tablet by ORAL route every day with food N 12/31/2017 OneTouch Delica Lancets 33 gauge USE ONE TO CHECK GLUCOSE TWICE DAILY DX:E11.42 NPI#[id number] N DX:E11.42 NPI#[id number] 04/01/2017 ONETOUCH VERIO HAO USE ONE STRIP TO CHECK GLUCOSE TWICE DAILY N 12/26/2017 RANITIDINE 300MG TAB TAKE ONE TABLET BY MOUTH ONCE DAILY AT BEDTIME N 05/07/2018 SAVELLA 50MG TAB TAKE ONE TABLET BY MOUTH TWICE DAILY N 05/14/2018 trazodone 50 mg tablet take 3 tablets qHS N 90 day supply - Allergies: Ingredient Reaction (Severity) Medication Name Comment AMOXICILLIN AMOXICILLIN TRIHYDRATE diarrhea Augmentin CODEINE METFORMIN diarrhea POTASSIUM CLAVULANATE diarrhea Augmentin QUINAPRIL HCL Accupril Review of Systems System Neg/Pos Details Constitutional Negative Chills, Fever and Malaise. ENMT Negative Sore throat. Eyes Negative Double vision. Respiratory Negative Dyspnea and Wheezing. Cardio Negative Chest pain and Irregular heartbeat/palpitations. GI Positive See HPI. GI Negative See HPI. Negative Dysuria and Hematuria. Endocrine Negative Cold intolerance and Heat intolerance. Psych Negative Anxiety. Integumentary Negative Hives and Rash. MS Negative Joint pain. Nato/Lymph Negative Easy bleeding and Easy bruising. Allergic/Immuno Negative Food allergies. Reproductive Positive The patient is post-menopausal. Vital Signs Time BP mm/Hg Pulse /min Resp /min Temp F Ht ft Ht in Ht cm Wt lb Wt kg BMI kg/ m2 BSA m2 O2 Sat% 12:58 PM 130/64 115 14 98.4 5.0 4.00 162.56 198.20 89.902 34.02 2.01 95 Measured By Time Measured by 12:58 PM Nuzhat Swygert PHYSICAL EXAM: Exam Findings Details Constitutional Normal Well developed. Eyes Normal Conjunctiva - Right: Normal, Left: Normal. Sclera - Right: Normal, Left: Normal. Nasopharynx Normal Lips/teeth/gums - Normal. Neck Exam Normal Inspection - Normal. Thyroid gland - Normal. Respiratory Normal Inspection - Normal. Auscultation - Normal. Cardiovascular Normal Regular rate and rhythm. No murmurs, gallops, or rubs. Abdomen Normal Inspection - Normal. Anterior palpation - No guarding. No abdominal tenderness. No hepatic enlargement. No spleen enlargement. No hernia. No Ascites. Skin Normal Inspection - Normal. Extremity Normal No edema. Psychiatric Normal Orientation - Oriented to time, place, person & situation. Appropriate mood and affect. Assessment/Plan # Detail Type Description 1. Assessment Dysphagia, unspecified type (R13.10). Patient Plan schedule EGD at Plan Orders Further diagnostic evaluations ordered today include(s) EGD w/ dilation over guidewire to be performed today. She is to schedule a follow-up visit with Sandhya Ribeiro MD upon completion of work-up. Co-Sign Orders Order Ordering Provider Cosigned Name Cosigned Date Cosigner Comments EGD w/ dilation over guidewire Sandhya Ribeiro 05/21/2018 follow-up visit with Sandhya Ribeiro MD upon completion of work-up Sandhya Ribeiro 05/21/2018 Active Patient Care Team Members Name Contact Agency Type Support Role Relationship Active Date Inactive Date Specialty Luis A Sanchez MD Patient provider PCP Internal Med Rich Ribeiro encounter provider Gastroenterindia Montalvo LPN Nursing Document Electronically signed: Sandhya Ribeiro MD 05/21/2018 01:38 PM Document generated by: Sandhya Ribeiro 05/21/2018 Lucie Narvaez MD, Family Practice; Luis A Sanchez MD Internal Medicine; Cynthia Dutton MD, Internal Medicine; Marge Ribeiro MD Internal Medicine; Sandhya Ribeiro MD, Gastroenterology; Martinez Kessler MD, Rheumatology, Stefany Solis APRN ------ 05/27/18 Patient seen and examined. No change in H&P. SANDHYA RIBEIRO MD May 27, 2018 09:10
[2018-05-27 10:41] VITALS: BP 180/95
== END | disposition home or self-care (01) ==
LOC: SURG 08:37
PROVIDERS: ATTEND Internal Medicine Gastroenterology
DX: K58.0 Irritable bowel syndrome with diarrhea (principal); R13.10 Dysphagia, unspecified; Z88.0 Allergy status to penicillin; Z88.5 Allergy status to narcotic agent; Z88.8 Allergy status to other drugs, medicaments and biological substances; K21.9 Gastro-esophageal reflux disease without esophagitis; M17.10 Unilateral primary osteoarthritis, unspecified knee; I10 Essential (primary) hypertension; E11.42 Type 2 diabetes mellitus with diabetic polyneuropathy; E78.5 Hyperlipidemia, unspecified; E03.9 Hypothyroidism, unspecified; Z86.010 Personal history of colon polyps; M79.7 Fibromyalgia; G47.30 Sleep apnea, unspecified; Z98.890 Other specified postprocedural states; F32.9 Major depressive disorder, single episode, unspecified; Z86.718 Personal history of other venous thrombosis and embolism; G51.0 Bell's palsy; Z82.61 Family history of arthritis; Z79.82 Long term (current) use of aspirin; Z79.899 Other long term (current) drug therapy; Z79.84 Long term (current) use of oral hypoglycemic drugs
CPT/HCPCS: 43235; 43450; J2001; J2704; J3490

== ENCOUNTER → 2020-02-24 | Outpatient (CLI) | payer MEDICARE ==
[2018-05-27 10:41] VITALS: BP 180/95
[~2020-02-24] MED LIST changes: -AMLO10TA6 PO; +AMLO10TA8 PO; +AMLO5TAB10 PO; -AMLO5TAB7 PO; +CARV12.511 PO; -CARV12.52 PO; +CARV6.2511 PO; -CARV6.252 PO; -GABA-586 PO; +GABA300C18 PO; -GLIM1TAB2 PO; +GLIM1TAB7 PO; -GLYCOPYRROLATE 1 MG/5 ML VIAL. ONE; -HYDR-2758 PO; +HYDR-2761 PO; +HYDR-3164 PO; -HYDR-971 PO; -IV RINGERS,LACTATED 1000ML 1,000 ML IV SCH; -LIDOCAINE 1% PF 2 ML VIAL. ID PRN; -LIDOCAINE 2% PF Vial for OR 5 ML VIAL. ONE; +LOSA100T14 PO; -LOSA100T7 PO; +MULT-445 PO; -MULT1TAB52 PO; -ONDANSETRON PF 4 MG/2 ML VIAL. IV PRN; +POTA20TA4 PO; -POTA20TA82 PO; -PROCHLORPERAZINE 10 MG/2 ML VIAL. IV PRN; -PROPOFOL 20 ML IV ONE; -PROPOFOL 40 ML IV ONE; +REGADENOSON 0.4 MG/5 ML DISP.SYRIN. IV ONE; +TRAZ-118 PO; -TRAZ-85 PO; -ePHEDrine PF IN SALINE 50 MG/5 ML DISP.SYRIN IV ONE; -fentaNYL PF VIAL 100 MCG/2 ML VIAL IV PRN
--- NOTE | 2020-02-24 13:17 | RAD ---
MR#: [id number] Date of Study: 02/24/2020 Ordering Physician: CHEO CHIN, Referring Physician: KAREL AREVALO Tech: RT Mabrin LambR) (N) APPROVED REPORT Test Type: Pharmacological Stress Nurse/Tech: Lotus Greenfield R.N. Test Indications: chest pain Cardiac History: htn, dm Medications: see attached list Medical History: see ehr Resting ECG: sr Resting Heart Rate: 70 bpm Resting Blood Pressure: 130/72mmHg Nurse/Tech Notes lungs cta, heart tones regular, pt c/o intermittant chest pressure Consent: The procedure was explained to the patient in lay terms. Informed consent was witnessed. Ralph eout was entered into [employer]. History and Stress Test performed by MECHE Sher Pharm. Details Pharmacologic stress testing was performed using 0.4mg per 5ml of regadenoson given intravenously ove r 7-10 seconds. Stress Symptoms No chest pain or symptoms. POST EXERCISE Reason for Termination: Infusion complete Target HR: No Max HR: 85 bpm Max Blood Pressure: 140/62mmHg Chest Pain: No. Arrhythmia: No. ST Change: No. INTERPRETATION Stress EKG Conclusion: The resting EKG shows a sinus rhythm with nonspecific ST-T wave changes. The stress EKG shows no significant changes from baseline. No EKG evidence of stress-induced ischemia. Imaging Protocol IMAGE PROTOCOL: Rest Tc-99m/stress Tc-99m 1 day Rest: Stress: Viability: Radiopharm.Tc99m TnlberugsCw76m Sestamibi Vvxf79gFm 33mCi Duration 15min. 10min. Img Date 02/24/2020 02/24/2020 Inj-Img [id number]. 60min. Rest Admin Site:IV - Right AntecubitalAdministrator:RT Adonis (Carlo)(N) Stress Admin Site: IV - Right AntecubitalAdministrator: MECHE Sher STRESS DATA End Diast. Vol.76.0mlAv. Heart Rate81.0bpm End Syst. Vol.11.0mlCO Index BSA0.0L/min Myocardial Nqdw440.0gEject. Rzhtajsm52.0% Stress Rates Pk. Fill Rate2.92EDV/secLVtime Pk. Fill 186.07msec Pk. Empty Rate4.18ESV/secLVtime Pk. Napgl391.22msec 09/11 Pk. Fill1.48EDV/sec Stress Scores Regional WT0.00Summed WT1.00 Regional WM0.00Summed WM0.00 LV Perfusion The stress scans showed no significant defects. The rest scans showed no significant defects. Nuclear imaging shows no reversible ischemia or infarct. Wall Motion Left ventricular systolic function is normal with no regional wall motion abnormalities and an ejecti on fraction of greater than 70%. LV Perf. Quant 17 Seg. SSS0.00 17 Seg. SRS1.00 17 Seg. SDS0.00 Stress Defect Extent (% LAD)0.00Rest Defect Extent (% LAD)5.00Rev. Defect Extent (% LAD)0.00 Stress Defect Extent (% LCX) 0.00Rest Defect Extent (% LCX)0.00Rev. Defect Extent (% LCX)0.00 Stress Defect Extent (% RCA)0.00Rest Defect Extent (% RCA)0.00Rev. Defect Extent (% RCA)0.00 Stress Defect Extent (% LIZBETH)0.00Rest Defect Extent (% LIZBETH)1.70Rev. Defect Extent (% LIZBETH)0.00 Conclusion 1. No EKG evidence of stress-induced ischemia. 2. Nuclear imaging shows no reversible ischemia or infarct. 3. Normal left ventricular systolic function with no wall motion abnormalities and an ejection fracti on of greater than 70%. 4. Low risk Lexiscan nuclear stress test. Signed by : Oleksandr Brian MD Electronically Approved : 02/24/2020 13:16:59
== END | disposition home or self-care (01) ==
LOC: NM 09:24
PROVIDERS: ATTEND Internal Medicine
DX: R07.9 Chest pain, unspecified (principal); I10 Essential (primary) hypertension; E11.9 Type 2 diabetes mellitus without complications
CPT/HCPCS: 78452; 93017; A9500; J2785

== ENCOUNTER → 2020-12-13 | Outpatient (CLI) | payer MEDICARE ==
[2018-05-27 10:41] VITALS: BP 180/95
[~2020-12-13] MED LIST changes: +AMLO-186 PO; +AMLO-187 PO; -AMLO10TA8 PO; -AMLO5TAB10 PO
--- NOTE | 2020-12-13 16:32 | RAD ---
MR#: [id number] Date of Study: 12/13/2020 Ordering Physician: FAHAD ROSS, Referring Physician: KAREL MACHADO Tech: RT Adonis (R) (N) APPROVED REPORT Test Type: Pharmacological Stress Nurse/Tech: BOYD OSBORNE Test Indications: CHEST PAIN Cardiac History: HTN, SEE EMR Medications: SEE EMR Medical History: SEE EMR Resting ECG: SR Resting Heart Rate: 65 bpm Resting Blood Pressure: 136/73mmHg Pretest Chest Pain: No chest pain Nurse/Tech Notes S1,S2, LUNGS CTA, VSS, DENIED CP OR SOA. PT STATED SHE WAS UNABLE TO DO THE TREADMILL TEST BECAUSE OF HER KNEES. Consent: The procedure was explained to the patient in lay terms. Informed consent was witnessed. Ralph eout was entered into [employer]. History and Stress Test performed by YASMEEN Gong, ARRT (R) (N) Pharm. Details Pharmacologic stress testing was performed using 0.4mg per 5ml of regadenoson given intravenously ove r 7-10 seconds. Stress Symptoms PT DENIED SYMPTOMS DURING TESTING. VSS. NO COMPLAINTS. POST EXERCISE Reason for Termination: Infusion complete Max HR: 81 bpm Max Blood Pressure: 125/64mmHg Blood Pressure response to exercise: Normal blood pressure response during stress. Heart Rate response to exercise: WNL Chest Pain: No. Arrhythmia: No. ST Change: No. INTERPRETATION Stress EKG Conclusion: The resting EKG shows a sinus rhythm with mild nonspecific ST segment changes. The stress EKG shows no significant changes from baseline. No EKG evidence of stress-induced ischemia. Imaging Protocol IMAGE PROTOCOL: Rest Tc-99m/stress Tc-99m 1 day Rest: Stress: Viability: Radiopharm.Tc99m RnlhlmzybKx67e Sestamibi Kvby02yTl 31mCi Duration 13min. 13min. Img Date 12/13/2020 12/13/2020 Inj-Img Vcex26olt. 60min. Rest Admin Site:IV - Left AntecubitalAdministrator:RT Adonis (R)(N) Stress Admin Site: IV - Left AntecubitalAdministrator: Moustapha Hilton, RT (R)(N) STRESS DATA End Diast. Vol.62.0mlLVEDV index BSA32.0ml End Syst. Vol.13.0mlLVESV index BSA7.0ml Myocardial Eute918.0gEject. Diqwsooq56.0% Stress Scores Regional WT0.00Summed WT2.00 Regional WM0.00Summed WM0.00 LV Perfusion The stress scans show no significant defects. The rest scans showed no significant defects. Nuclear imaging shows no reversible ischemia or infarct. Wall Motion Left ventricular systolic function is normal with an ejection fraction of greater than 70%. LV Perf. Quant 17 Seg. SSS0.00 17 Seg. SRS0.00 17 Seg. SDS0.00 Stress Defect Extent (% LAD)0.00Rest Defect Extent (% LAD)0.00Rev. Defect Extent (% LAD)0.00 Stress Defect Extent (% LCX) 0.00Rest Defect Extent (% LCX)0.00Rev. Defect Extent (% LCX)0.00 Stress Defect Extent (% RCA)0.00Rest Defect Extent (% RCA)0.00Rev. Defect Extent (% RCA)0.00 Stress Defect Extent (% LIZBETH)0.00Rest Defect Extent (% LIZBETH)0.00Rev. Defect Extent (% LIZBETH)0.00 Conclusion 1. No EKG evidence of stress-induced ischemia. 2. Nuclear imaging shows no reversible ischemia or infarct. 3. Normal left ventricular systolic function with an ejection fraction of greater than 70%. 4. Low risk Lexiscan nuclear stress test. Signed by : Oleksandr Brian MD Electronically Approved : 12/13/2020 16:32:05
== END ==
LOC: NM 09:29
PROVIDERS: ATTEND Internal Medicine Cardiovascular Disease
DX: R07.9 Chest pain, unspecified (principal); I10 Essential (primary) hypertension
CPT/HCPCS: 78452; 93017; A9500; J2785

== ENCOUNTER 2021-03-11 12:24 | Inpatient (IN) | payer MEDICARE ==
[~2021-03-11] VITALS: Ht 165.1 cm; Wt 87.7 kg
[~2021-03-11 12:24] MED LIST changes: -LACT1CAP29 PO; +LACT1CAP37 PO; -REGADENOSON 0.4 MG/5 ML DISP.SYRIN. IV ONE
--- NOTE | 2021-03-11 13:01 | ED.ADGEN ---
Past Medical History Past Medical History: Anxiety, Arthritis, DVT, Fibromyalgia, GERD, Heart Disease, Hypertension, Hyperthyroid, TIA Additional Past Medical Histor: fibramyalgia, bells palsy, lumbar stenosis, neuropathy, DDD Past Surgical History: Appendectomy, Other Additional Past Surgical Histo: D&C, meniscus left Smoking Status: Never Smoker Alcohol Use: None Drug Use: None General Adult EDM: Chief Complaint: NEURO SYMPTOMS/DEFICITS HPI: HPI: Patient is a 75 year old female coming in for right-sided facial droop and, subjective arm numbness. Patient states symptoms started 2 days ago when she was in a stressful conversation. Patient states she also has a headache to the top of her head that is bilateral. Denies any vision changes. Denies any ear pain, tinnitus, loss of hearing or ear pressure. Patient states she was recently being treated for a sinus infection with is on antibiotic and prednisone taper. Patient states she has a history of chronic Delgadillo's palsy and waited to come in because she felt like it usually gets better on its own if she is able to rest. Patient called her primary care provider who instructed to come to the emergency department. Review of Systems: Review of Systems: All other systems within normal limits except for as noted in the HPI Current Medications: Current Medications Medications (Trade) Dose Ordered Sig/Sandra Start Time Stop Time Status Last Admin Dose Admin Acetaminophen (Tylenol) 650 mg PRN Q4HRS PRN 03/11/21 14:45 03/12/21 14:44 Clopidogrel Bisulfate (Plavix) 75 mg 1X ONCE 03/11/21 14:45 03/11/21 14:53 DC Diphenhydramine HCl (Benadryl) 25 mg 1X ONCE 03/11/21 14:15 03/11/21 14:21 DC 03/11/21 14:29 25 MG Fentanyl Citrate (Fentanyl 2ml Vial) 50 mcg PRN Q1HR PRN 03/11/21 14:45 03/12/21 14:44 Nitrofurantoin Macrocrystals (Macrobid) 100 mg 1X ONCE 03/11/21 14:15 03/11/21 14:21 DC 03/11/21 15:23 100 MG Ondansetron HCl (Zofran) 4 mg PRN Q8HRS PRN 03/11/21 14:45 03/12/21 14:44 Prochlorperazine Edisylate (Compazine) 10 mg 1X ONCE 03/11/21 14:15 03/11/21 14:21 DC 03/11/21 14:29 10 MG Sodium Chloride 1,000 ml @ 1,000 mls/hr 1X ONCE 03/11/21 14:15 03/11/21 15:14 DC 03/11/21 14:28 1,000 MLS/HR Allergies: Allergies: Allergies Coded Allergies Type Severity Reaction Last Updated Verified Penicillins Allergy Intermediate 05/27/18 Yes metformin Allergy Intermediate Diarrhea 05/27/18 Yes quinapril Allergy Intermediate 05/27/18 Yes codeine Adverse Reaction Intermediate Nausea, tolerates Lortab OK 05/27/18 Yes Physical Exam: PE: Constitutional: Well developed, well nourished, no acute distress, non-toxic appearance. [] HENT: Normocephalic, atraumatic, bilateral external ears normal, nose normal. [] Eyes: PERRLA, conjunctiva normal, no discharge. [] Neck: No rigidity, supple, no stridor. [] Cardiovascular: Regular rate and rhythm, brisk cap refill [] Lungs & Thorax: Non labored symmetric respirations, no tachypnea or respiratory distress [] Abdomen: Soft, nondistended. Skin: Warm, dry, no erythema, no rash. [] Back: Unremarkable Extremities: No deformities, range of motion grossly intact, no lower extremity edema [] Neurologic: Alert and oriented X 3, right-sided facial droop sparing forehead Psychologic: Affect normal, judgement normal, mood normal. [] Current Patient Data: Labs: Laboratory Tests Test 03/11/21 12:50 03/11/21 13:05 03/11/21 13:06 Urine Collection Type Unknown Urine Color Yellow Urine Clarity Clear Urine pH 6.0 (<5.0-8.0) Urine Specific [place] 1.010 (1.000-1.030) Urine Protein Negative mg/dL (NEG-TRACE) Urine Glucose (UA) Negative mg/dL (NEG) Urine Ketones (Stick) Negative mg/dL (NEG) Urine Blood Negative (NEG) Urine Nitrite Negative (NEG) Urine Bilirubin Negative (NEG) Urine Urobilinogen Dipstick 0.2 mg/dL (0.2 mg/dL) Urine Leukocyte Esterase Moderate (NEG) Urine RBC Occ /HPF (0-2) Urine WBC 5-10 /HPF (0-4) Urine Squamous Epithelial Cells Few /LPF Urine Bacteria Moderate /HPF (0-FEW) Urine Hyaline Casts Few /HPF Glucose (Fingerstick) 130 mg/dL (70-99) H White Blood Count 10.8 x10^3/uL (4.0-11.0) Red Blood Count 4.28 x10^6/uL (3.50-5.40) Hemoglobin 13.3 g/dL (12.0-15.5) Hematocrit 39.9 % (36.0-47.0) Mean Corpuscular Volume 93 fL (79-100) Mean Corpuscular Hemoglobin 31 pg (25-35) Mean Corpuscular Hemoglobin Concent 33 g/dL (31-37) Red Cell Distribution Width 13.2 % (11.5-14.5) Platelet Count 257 x10^3/uL (140-400) Neutrophils (%) (Auto) 59 % (31-73) Lymphocytes (%) (Auto) 32 % (24-48) Monocytes (%) (Auto) 8 % (0-9) Eosinophils (%) (Auto) 1 % (0-3) Basophils (%) (Auto) 1 % (0-3) Neutrophils # (Auto) 6.4 x10^3/uL (1.8-7.7) Lymphocytes # (Auto) 3.4 x10^3/uL (1.0-4.8) Monocytes # (Auto) 0.9 x10^3/uL (0.0-1.1) Eosinophils # (Auto) 0.1 x10^3/uL (0.0-0.7) Basophils # (Auto) 0.0 x10^3/uL (0.0-0.2) Sodium Level 138 mmol/L (136-145) Potassium Level 4.4 mmol/L (3.5-5.1) Chloride Level 100 mmol/L (98-107) Carbon Dioxide Level 32 mmol/L (21-32) Anion Gap 6 (6-14) Blood Urea Nitrogen 19 mg/dL (7-20) Creatinine 1.2 mg/dL (0.6-1.0) H Estimated GFR (Cockcroft-Gault) 43.9 BUN/Creatinine Ratio 16 (6-20) Glucose Level 118 mg/dL (70-99) H Calcium Level 8.9 mg/dL (8.5-10.1) Phosphorus Level 3.7 mg/dL (2.6-4.7) Magnesium Level 2.3 mg/dL (1.8-2.4) Total Bilirubin 0.8 mg/dL (0.2-1.0) Aspartate Amino Transferase (AST) 16 U/L (15-37) Alanine Aminotransferase (ALT) 25 U/L (14-59) Alkaline Phosphatase 59 U/L (46-116) Troponin I Quantitative < 0.017 ng/mL (0.000-0.055) JC-Cfg-Q-Type Natriuretic Peptide 205 pg/mL (0-124) H Total Protein 6.9 g/dL (6.4-8.2) Albumin 4.2 g/dL (3.4-5.0) Albumin/Globulin Ratio 1.6 (1.0-1.7) Laboratory Tests 03/11/21 13:06 Laboratory Tests 03/11/21 13:06 Vital Signs: Vital Signs Date Time Temp Pulse Resp B/P (MAP) Pulse Ox O2 Delivery O2 Flow Rate FiO2 03/11/21 15:24 97.8 64 22 120/58 (78) 97 Room Air 97.8 EKG: EKG: Sinus rhythm, heart 60s per minute, left axis deviation, no ST elevation depression, no ectopy. Normal intervals. [] Heart Score: C/O Chest Pain: No HEART Score for Chest Pain: HEART Score for Chest Pain Response (Comments) Value History Slighlty/Non-Suspicious 0 ECG Normal 0 Age > 65 2 Risk Factors 1 or 2 Risk Factors 1 Troponin < Normal Limit 0 Total 3 Risk Factors: Risk Factors: DM, Current or recent (<one month) smoker, HTN, HLP, family histo ry of CAD, obesity. Risk Scores: Score 0 - 3: 2.5% MACE over next 6 weeks - Discharge Home Score 4 - 6: 20.3% MACE over next 6 weeks - Admit for Clinical Observation Score 7 - 10: 72.7% MACE over next 6 weeks - Early Invasive Strategies Radiology/Procedures: Radiology/Procedures: [facility] [address] [place] [address] IMAGING REPORT Signed PATIENT: JOSE NYE JACCOUNT: [id number] : 1945 LOCATION: ER AGE: 75 SEX: F EXAM STATUS: PRE ER ORD. PHYSICIAN: KYLIE MADRIGAL MD REASON: right facial droop PROCEDURE: CT HEAD WO CONTRAST EXAMINATION: CT HEAD/BRAIN WO (CT HEAD WITHOUT IV CONTRAST) CLINICAL HISTORY: Right facial droop TECHNIQUE: Serial axial images without IV contrast were obtained from the vertex to the foramen magnum. CT Dose Reduction Employed: One or more of the following individualized dose reduction techniques were utilized for this examination: 1. Automated exposure control 2. Adjustment of the mA and/or kV according to patient size 3. Use of iterative reconstruction technique. COMPARISON: 03/22/2017 FINDINGS: Acute Change: No evidence of an acute infarct or other acute parenchymal process. Hemorrhage: No evidence of acute intracranial hemorrhage. Mass Lesion/Mass Effect: No evidence of intracranial mass or extraaxial fluid collection. No significant mass effect. Chronic Change: Atherosclerotic calcification of the bilateral carotid siphons. Parenchyma: No significant volume loss. Parenchyma otherwise within normal limits for age. Ventricles: Ventricles within normal limits for age. Paranasal Sinuses and Skull Base: Visualized paranasal sinuses clear. Visualized skull base and soft tissues unremarkable. IMPRESSION: No evidence of acute intracranial abnormality or significant interval change. If concern for acute stroke persists, recommend MRI for further evaluation. Electronically signed by: Medhat Desai DO (03/11/2021 1:57 PM) [facility] DICTATED and SIGNED BY: MEDHAT DESAI DO DATE: 03/11/21 [id number] [] Course & Med Decision Making: Course & Med Decision Making Pertinent Labs and Imaging studies reviewed. (See chart for details) NIH of 5 for previous facial droop and left left-sided decreased sensation. Discussed with patient's primary care provider, Dr. Sanchez would like her admitted to his service, started on Plavix and her home meds, consult neurosurgery, MRI, carotid Doppler, PT and OT. [] Dragon Disclaimer: Dragon Disclaimer: This electronic medical record was generated, in whole or in part, using a voice recognition dictation system. Departure Departure Impression: Primary Impression: Headache Additional Impressions: CVA (cerebral vascular accident) UTI (urinary tract infection) Disposition: 09 ADMITTED INPATIENT Admitting Physician: Luis A Sanchez Condition: STABLE Referrals: LUIS A SANCHEZ MD (PCP) Problem Qualifiers KYLIE MADRIGAL MD Mar 11, 2021 13:01
[2021-03-11 13:31] LABS: BASO % 1 % (0-3); EOS # 0.1 x10^3/uL (0.0-0.7); EOS % 1 % (0-3); HEMATOCRIT 39.9 % (36.0-47.0); HEMOGLOBIN 13.3 g/dL (12.0-15.5); LYMPH # 3.4 x10^3/uL (1.0-4.8); LYMPH % 32 % (24-48); MEAN CORPUSCULAR HEMOGLOBIN 31 pg (25-35); MEAN CORPUSCULAR HGB CONC 33 g/dL (31-37); MEAN CORPUSCULAR VOLUME 93 fL (79-100); MONO # 0.9 x10^3/uL (0.0-1.1); MONO % 8 % (0-9); NEUT # 6.4 x10^3/uL (1.8-7.7); NEUT % 59 % (31-73); PLATELET COUNT 257 x10^3/uL (140-400); RED BLOOD COUNT 4.28 x10^6/uL (3.50-5.40); RED CELL DISTRIBUTION WIDTH 13.2 % (11.5-14.5); WHITE BLOOD COUNT 10.8 x10^3/uL (4.0-11.0)
[2021-03-11 13:31] LABS: BILIRUBIN,URINE NEGATIVE (NEG); CLARITY,URINE CLEAR; COLOR,URINE YELLOW; NITRITE,URINE NEGATIVE (NEG); PROTEIN,URINE NEGATIVE (NEG-TRACE); UROBILINOGEN,URINE 0.2 mg/dL (0.2 mg/dL)
[2021-03-11 13:38] LABS: CALCIUM 8.9 mg/dL (8.5-10.1); CREATININE 1.2 mg/dL (0.6-1.0); GFR 43.9; POTASSIUM 4.4 mmol/L (3.5-5.1)
[2021-03-11 13:44] LABS: ALBUMIN 4.2 g/dL (3.4-5.0); ALBUMIN/GLOBULIN RATIO 1.6 (1.0-1.7); MAGNESIUM 2.3 mg/dL (1.8-2.4); PHOSPHORUS 3.7 mg/dL (2.6-4.7); TOTAL BILIRUBIN 0.8 mg/dL (0.2-1.0); TOTAL PROTEIN 6.9 g/dL (6.4-8.2)
[2021-03-11 13:44] LABS: BACTERIA,URINE MODERATE /HPF (0-FEW); HYALINE CASTS, URINE FEW /HPF; RBC,URINE OCC /HPF (0-2)
--- NOTE | 2021-03-11 14:00 | RAD ---
EXAMINATION: CT HEAD/BRAIN WO (CT HEAD WITHOUT IV CONTRAST) CLINICAL HISTORY: Right facial droop TECHNIQUE: Serial axial images without IV contrast were obtained from the vertex to the foramen magnu m. CT Dose Reduction Employed: One or more of the following individualized dose reduction techniques wer e utilized for this examination: 1. Automated exposure control 2. Adjustment of the mA and/or kV ac cording to patient size 3. Use of iterative reconstruction technique. COMPARISON: 03/22/2017 FINDINGS: Acute Change: No evidence of an acute infarct or other acute parenchymal process. Hemorrhage: No evidence of acute intracranial hemorrhage. Mass Lesion/Mass Effect: No evidence of intracranial mass or extraaxial fluid collection. No signific ant mass effect. Chronic Change: Atherosclerotic calcification of the bilateral carotid siphons. Parenchyma: No significant volume loss. Parenchyma otherwise within normal limits for age. Ventricles: Ventricles within normal limits for age. Paranasal Sinuses and Skull Base: Visualized paranasal sinuses clear. Visualized skull base and soft tissues unremarkable. IMPRESSION: No evidence of acute intracranial abnormality or significant interval change. If concern for acute st roke persists, recommend MRI for further evaluation. Electronically signed by: Medhat Lara DO (03/11/2021 1:57 PM) [facility]
[2021-03-11] MEDS ORDERED: IV NORMAL SALINE 1000ML BAG 1,000 ML IV ONE (14:15)
[2021-03-11] MEDS ORDERED: PROCHLORPERAZINE 10 MG/2 ML VIAL. IV ONE (14:15)
[2021-03-11] MEDS ORDERED: diphenhydrAMINE 50 MG/ML VIAL IVP ONE (14:15)
[2021-03-11] MEDS ORDERED: NITROFURANTOIN MONOHYD/M-CRYST 100 MG CAPSULE. PO ONE (14:15)
[2021-03-11] MEDS ORDERED: CLOPIDOGREL BISULFATE 75 MG TABLET PO ONE ×2 (14:45→19:45)
[2021-03-11] MEDS ORDERED: fentaNYL PF VIAL 100 MCG/2 ML VIAL IV PRN (14:45)
[2021-03-11] MEDS ORDERED: ACETAMINOPHEN 325 MG TABLET. PO PRN ×2 (14:45→20:00)
[2021-03-11] MEDS ORDERED: ONDANSETRON PF 4 MG/2 ML VIAL. IV PRN (14:45)
--- NOTE | 2021-03-11 14:52 | EKG ---
[facility] [address] [place] [address] Test Date: 2021-03-11 Test Time: 12:43:32 Pat Name: JOSE SHAW Department: Room: Gender: F Negative Cleaner: : 1945 Requested By: KYLIE MADRIGAL Order Number: [id number] Reading MD: Chris Gonzales Measurements Intervals [place] Rate: 66 P: -43 MS: 156 QRS: -12 QRSD: 92 T: 21 QT: 388 QTc: 408 Interpretive Statements SINUS RHYTHM LEFTWARD AXIS Electronically Signed On 03-15-2021 12:33:05 CDT by Chris Gonzales
--- NOTE | 2021-03-11 17:08 | RAD ---
US DPLX CAROTID BILAT History: Reason: left weakness / Spl. Instructions: / History: COMPARISON: None Technique: Duplex sonography of the cervical portion of both carotid arteries was performed. Real-veronica e grayscale, color flow Doppler, and Doppler spectral waveform analysis is performed. PQRS Compliance Statement - Stenosis calculations for CT, MR and conventional angiography are based u humza measurement of the distal ICA diameter in accordance with the NASCET methodology. Stenosis calcu lations for carotid ultrasound studies are derived from validated velocity criteria which are known t o correlate with the NASCET methodology. Findings: Right side: Peak systolic flow velocity of the CCA is 85 cm/sec. Peak systolic flow velocity of the ICA is 94 cm/sec. The ICA/CCA ratio is 1.1. Peak end diastolic flow velocity of the ICA is 30 cm/sec. The peak systolic velocity of the ECA is 74 cm/sec. Mild atheromatous plaque within the carotid bifurcation. Left side: Peak systolic flow velocity of the CCA is 97 cm/sec. Peak systolic flow velocity of the ICA is 83 cm/sec. The ICA/CCA ratio is 0.9. Peak end diastolic flow velocity of the ICA is 28 cm/sec. Peak systolic flow velocity of the ECA is 108 cm/sec. No significant plaque formation is identified. Vertebral arteries: Bilateral vertebral arteries demonstrate antegrade flow. IMPRESSION: 1. No hemodynamically significant internal carotid artery stenosis. 2. Mild atheromatous plaque. Electronically signed by: Dave Harmon DO (03/11/2021 5:06 PM) [facility]
[2021-03-11 18:15] VITALS: BP 133/79
--- NOTE | 2021-03-11 18:30 | PDOC2 ---
NEUROLOGY CONSULT Date of Service DOS: DATE: 03/11/21 TIME: 18:16 Reason for Consult Reason for Consult: Possible stroke Referring Physician Referring Physician: Dr. Sanchez History of Present Illness History of Present Illness The patient is a 75-year-old right-handed female with a chief complaint of right facial droop and right arm numbness. Symptoms started 2 days ago when she was in a stressful conversation with a family member. She complains of headache. She has disequilibrium. I have seen her in the past for generalized weakness, disequilibrium, and fibromyalgia. She was in the hospital in July 2015. MRI of the brain, lumbar, and cervical spine were essentially negative (mild degenerative changes on the cervical and lumbar MRI). Laboratory studies including CPK, TSH, B12, folate, and sedimentation rate were normal, but she was hypokalemic. Later she returned to my office for an EMG which confirmed neuropathy, which I ascribed to diabetes. 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 More recently she has gone to the [facility] for vestibular therapy. They have recommended neurological evaluation, but note I have already examined her today as well as in the past. She did have a recent brain MRI, which, with her permission, I have reviewed online, see below. Past Medical History Cardiovascular: HTN, Other (DVT) Pulmonary: Other (obstructive sleep apnea) CENTRAL NERVOUS SYSTEM: TIA, Other (Delgadillo's palsy) GI: Diverticulosis, GERD, Gastritis, Other (esophageal stenosis with dilitation, colonic polyps) Psych: Depression Musculoskeletal: low back pain, Bursitis, Osteoarthritis Rheumatologic: Fibromyalgia ENT: Sincusitis Endocrine: Hypothyroidism Past Surgical History Past Surgical History: Appendectomy, Hernia Repair (ventral), Other (D&C, left knee arthroscopy) Family History Family History: Hyperlipidemia, Hypertension Social History Social History , nonsmoker, nondrinker Current Medications Current Medications Current Medications Sodium Chloride 1,000 ml @ 1,000 mls/hr 1X ONCE IV Last administered on 03/11/21at 14:28; Start 03/11/21 at 14:15; Stop 03/11/21 at 15:14; Status DC Prochlorperazine Edisylate (Compazine) 10 mg 1X ONCE IV Last administered on 03/11/21at 14:29; Start 03/11/21 at 14:15; Stop 03/11/21 at 14:21; Status DC Diphenhydramine HCl (Benadryl) 25 mg 1X ONCE IVP Last administered on 03/11/21at 14:29; Start 03/11/21 at 14:15; Stop 03/11/21 at 14:21; Status DC Nitrofurantoin Macrocrystals (Macrobid) 100 mg 1X ONCE PO Last administered on 03/11/21at 15:23; Start 03/11/21 at 14:15; Stop 03/11/21 at 14:21; Status DC Clopidogrel Bisulfate (Plavix) 75 mg 1X ONCE PO ; Start 03/11/21 at 14:45; Stop 03/11/21 at 14:53; Status DC Ondansetron HCl (Zofran) 4 mg PRN Q8HRS PRN IV NAUSEA/VOMITING; Start 03/11/21 at 14:45; Stop 03/12/21 at 14:44 Fentanyl Citrate (Fentanyl 2ml Vial) 50 mcg PRN Q1HR PRN IV PAIN; Start 03/11/21 at 14:45; Stop 03/12/21 at 14:44 Acetaminophen (Tylenol) 650 mg PRN Q4HRS PRN PO FEVER > 100.3'F; Start 03/11/21 at 14:45; Stop 03/12/21 at 14:44 Active Scripts Active Tylenol (Acetaminophen) 325 Mg Tablet 1-2 Tab PO QID [place] 5-325 Tablet (Acetaminophen/Hydrocodone Bitart) 1 Each Tablet 1 Tab PO PRN Q6HRS PRN Lipitor (Atorvastatin Calcium) 10 Mg Tablet 10 Mg PO QHS Reported Hydrochlorothiazide Tablet (Hydrochlorothiazide) 12.5 Mg Tablet 25 Mg PO DAILY Glimepiride 1 Mg Tablet 1 Tab PO DAILY Alprazolam 0.5 Mg Tablet 1 Tab PO [id number] Multivitamins (Multivitamin) 1 Each Tablet 1 Tab PO DAILY Aspir 81 (Aspirin) 81 Mg Tablet.dr 81 Mg PO DAILY Losartan Potassium 100 Mg Tablet 50 Mg PO DAILY Ranitidine Hcl 300 Mg Capsule 300 Mg PO HS Trazodone Hcl 50 Mg Tablet 150 Mg PO HS Levothyroxine Sodium 75 Mcg Tablet 75 Mcg PO DAILYAC Savella (Milnacipran Hcl) 50 Mg Tablet 50 Mg PO BID Allergies Allergies: Coded Allergies: Penicillins (Verified Allergy, Intermediate, 05/27/18) metformin (Verified Allergy, Intermediate, Diarrhea, 05/27/18) quinapril (Verified Allergy, Intermediate, 05/27/18) codeine (Verified Adverse Reaction, Intermediate, Nausea, tolerates Lortab OK, 05/27/18) ROS Review of System Negative for fever, chills, weight loss, shortness of breath, chest pain, indigestion, hematochezia, melena, and dysuria. Full 14-point review of systems is negative. Physical Exam Physical Examination General: Well-developed, well-nourished white female in no acute distress HEENT: Normocephalic andatraumatic. Tympanic membranes clear.Temporal arteriespulsatile and nontender. Neck: Supple without bruit, no meningismus Musculoskeletal: Stability:see neurologic. Gait exam:see neurologic. Tone:see neurologic.Strength:see neurologic. Neurological: Mental Status:intact, orientation, memory, attention span/concentration, language, fund of knowledge normal. Cranial Nerves:Pupils equal and reactive to light, extraocular movements areintact, visual chaparro are full to c onfrontation. Facial sensation is normal. Right peripheral facial weakness. Vestibulo-ocular reflex is intact. Palate elevates and tongue protrudes in midline. All other cranial related problems are negative except as mentioned before.Reflexes:1+ and symmetric with flexor plantar responses. Motor:5/5 strength with normal tone and bulk. Coordination:Finger-nose finger and heel- to-martinez testing are normal. Rapid alternating movements and fine finger movements are intact. Gait:Unsteady. Sensory:Normal pinprick, vibration, light touch, proprioception. Vitals VITALS Vital Signs Date Time Temp Pulse Resp B/P (MAP) Pulse Ox O2 Delivery O2 Flow Rate FiO2 03/11/21 17:00 62 16 119/57 (77) 98 Room Air 03/11/21 15:24 97.8 97.8 Labs Labs Laboratory Tests Test 03/11/21 12:50 03/11/21 13:05 03/11/21 13:06 03/11/21 18:08 Urine Collection Type Unknown Urine Color Yellow Urine Clarity Clear Urine pH 6.0 (<5.0-8.0) Urine Specific [place] 1.010 (1.000-1.030) Urine Protein Negative mg/dL (NEG-TRACE) Urine Glucose (UA) Negative mg/dL (NEG) Urine Ketones (Stick) Negative mg/dL (NEG) Urine Blood Negative (NEG) Urine Nitrite Negative (NEG) Urine Bilirubin Negative (NEG) Urine Urobilinogen Dipstick 0.2 mg/dL (0.2 mg/dL) Urine Leukocyte Esterase Moderate (NEG) Urine RBC Occ /HPF (0-2) Urine WBC 5-10 /HPF (0-4) Urine Squamous Epithelial Cells Few /LPF Urine Bacteria Moderate /HPF (0-FEW) Urine Hyaline Casts Few /HPF Glucose (Fingerstick) 130 mg/dL (70-99) 101 mg/dL (70-99) White Blood Count 10.8 x10^3/uL (4.0-11.0) Red Blood Count 4.28 x10^6/uL (3.50-5.40) Hemoglobin 13.3 g/dL (12.0-15.5) Hematocrit 39.9 % (36.0-47.0) Mean Corpuscular Volume 93 fL (79-100) Mean Corpuscular Hemoglobin 31 pg (25-35) Mean Corpuscular Hemoglobin Concent 33 g/dL (31-37) Red Cell Distribution Width 13.2 % (11.5-14.5) Platelet Count 257 x10^3/uL (140-400) Neutrophils (%) (Auto) 59 % (31-73) Lymphocytes (%) (Auto) 32 % (24-48) Monocytes (%) (Auto) 8 % (0-9) Eosinophils (%) (Auto) 1 % (0-3) Basophils (%) (Auto) 1 % (0-3) Neutrophils # (Auto) 6.4 x10^3/uL (1.8-7.7) Lymphocytes # (Auto) 3.4 x10^3/uL (1.0-4.8) Monocytes # (Auto) 0.9 x10^3/uL (0.0-1.1) Eosinophils # (Auto) 0.1 x10^3/uL (0.0-0.7) Basophils # (Auto) 0.0 x10^3/uL (0.0-0.2) Sodium Level 138 mmol/L (136-145) Potassium Level 4.4 mmol/L (3.5-5.1) Chloride Level 100 mmol/L (98-107) Carbon Dioxide Level 32 mmol/L (21-32) Anion Gap 6 (6-14) Blood Urea Nitrogen 19 mg/dL (7-20) Creatinine 1.2 mg/dL (0.6-1.0) Estimated GFR (Cockcroft-Gault) 43.9 BUN/Creatinine Ratio 16 (6-20) Glucose Level 118 mg/dL (70-99) Calcium Level 8.9 mg/dL (8.5-10.1) Phosphorus Level 3.7 mg/dL (2.6-4.7) Magnesium Level 2.3 mg/dL (1.8-2.4) Total Bilirubin 0.8 mg/dL (0.2-1.0) Aspartate Amino Transf (AST/SGOT) 16 U/L (15-37) Alanine Aminotransferase (ALT/SGPT) 25 U/L (14-59) Alkaline Phosphatase 59 U/L (46-116) Troponin I Quantitative < 0.017 ng/mL (0.000-0.055) SA-Yrj-L-Type Natriuretic Peptide 205 pg/mL (0-124) Total Protein 6.9 g/dL (6.4-8.2) Albumin 4.2 g/dL (3.4-5.0) Albumin/Globulin Ratio 1.6 (1.0-1.7) Laboratory Tests Test 03/11/21 12:50 03/11/21 13:05 03/11/21 13:06 03/11/21 18:08 Urine Collection Type Unknown Urine Color Yellow Urine Clarity Clear Urine pH 6.0 (<5.0-8.0) Urine Specific [place] 1.010 (1.000-1.030) Urine Protein Negative mg/dL (NEG-TRACE) Urine Glucose (UA) Negative mg/dL (NEG) Urine Ketones (Stick) Negative mg/dL (NEG) Urine Blood Negative (NEG) Urine Nitrite Negative (NEG) Urine Bilirubin Negative (NEG) Urine Urobilinogen Dipstick 0.2 mg/dL (0.2 mg/dL) Urine Leukocyte Esterase Moderate (NEG) Urine RBC Occ /HPF (0-2) Urine WBC 5-10 /HPF (0-4) Urine Squamous Epithelial Cells Few /LPF Urine Bacteria Moderate /HPF (0-FEW) Urine Hyaline Casts Few /HPF Glucose (Fingerstick) 130 mg/dL (70-99) 101 mg/dL (70-99) White Blood Count 10.8 x10^3/uL (4.0-11.0) Red Blood Count 4.28 x10^6/uL (3.50-5.40) Hemoglobin 13.3 g/dL (12.0-15.5) Hematocrit 39.9 % (36.0-47.0) Mean Corpuscular Volume 93 fL (79-100) Mean Corpuscular Hemoglobin 31 pg (25-35) Mean Corpuscular Hemoglobin Concent 33 g/dL (31-37) Red Cell Distribution Width 13.2 % (11.5-14.5) Platelet Count 257 x10^3/uL (140-400) Neutrophils (%) (Auto) 59 % (31-73) Lymphocytes (%) (Auto) 32 % (24-48) Monocytes (%) (Auto) 8 % (0-9) Eosinophils (%) (Auto) 1 % (0-3) Basophils (%) (Auto) 1 % (0-3) Neutrophils # (Auto) 6.4 x10^3/uL (1.8-7.7) Lymphocytes # (Auto) 3.4 x10^3/uL (1.0-4.8) Monocytes # (Auto) 0.9 x10^3/uL (0.0-1.1) Eosinophils # (Auto) 0.1 x10^3/uL (0.0-0.7) Basophils # (Auto) 0.0 x10^3/uL (0.0-0.2) Sodium Level 138 mmol/L (136-145) Potassium Level 4.4 mmol/L (3.5-5.1) Chloride Level 100 mmol/L (98-107) Carbon Dioxide Level 32 mmol/L (21-32) Anion Gap 6 (6-14) Blood Urea Nitrogen 19 mg/dL (7-20) Creatinine 1.2 mg/dL (0.6-1.0) Estimated GFR (Cockcroft-Gault) 43.9 BUN/Creatinine Ratio 16 (6-20) Glucose Level 118 mg/dL (70-99) Calcium Level 8.9 mg/dL (8.5-10.1) Phosphorus Level 3.7 mg/dL (2.6-4.7) Magnesium Level 2.3 mg/dL (1.8-2.4) Total Bilirubin 0.8 mg/dL (0.2-1.0) Aspartate Amino Transf (AST/SGOT) 16 U/L (15-37) Alanine Aminotransferase (ALT/SGPT) 25 U/L (14-59) Alkaline Phosphatase 59 U/L (46-116) Troponin I Quantitative < 0.017 ng/mL (0.000-0.055) YP-Vju-H-Type Natriuretic Peptide 205 pg/mL (0-124) Total Protein 6.9 g/dL (6.4-8.2) Albumin 4.2 g/dL (3.4-5.0) Albumin/Globulin Ratio 1.6 (1.0-1.7) Images Images CT HEAD/BRAIN WO (CT HEAD WITHOUT IV CONTRAST) CLINICAL HISTORY: Right facial droop TECHNIQUE: Serial axial images without IV contrast were obtained from the vertex to the foramen magnum. CT Dose Reduction Employed: One or more of the following individualized dose reduction techniques were utilized for this examination: 1. Automated exposure control 2. Adjustment of the mA and/or kV according to patient size 3. Use of iterative reconstruction technique. COMPARISON: 03/22/2017 FINDINGS: Acute Change: No evidence of an acute infarct or other acute parenchymal process. Hemorrhage: No evidence of acute intracranial hemorrhage. Mass Lesion/Mass Effect: No evidence of intracranial mass or extraaxial fluid collection. No significant mass effect. Chronic Change: Atherosclerotic calcification of the bilateral carotid siphons. Parenchyma: No significant volume loss. Parenchyma otherwise within normal limits for age. Ventricles: Ventricles within normal limits for age. Paranasal Sinuses and Skull Base: Visualized paranasal sinuses clear. Visualized skull base and soft tissues unremarkable. IMPRESSION: No evidence of acute intracranial abnormality or significant interval change. If concern for acute stroke persists, recommend MRI for further evaluation. US DPLX CAROTID BILAT History: Reason: left weakness / Spl. Instructions: / History: COMPARISON: None Technique: Duplex sonography of the cervical portion of both carotid arteries was performed. Real-time grayscale, color flow Doppler, and Doppler spectral waveform analysis is performed. PQRS Compliance Statement - Stenosis calculations for CT, MR and conventional angiography are based upon measurement of the distal ICA diameter in accordance with the NASCET methodology. Stenosis calculations for carotid ultrasound studies are derived from validated velocity criteria which are known to correlate with the NASCET methodology. Findings: Right side: Peak systolic flow velocity of the CCA is 85 cm/sec. Peak systolic flow velocity of the ICA is 94 cm/sec. The ICA/CCA ratio is 1.1. Peak end diastolic flow velocity of the ICA is 30 cm/sec. The peak systolic velocity of the ECA is 74 cm/sec. Mild atheromatous plaque within the carotid bifurcation. Left side: Peak systolic flow velocity of the CCA is 97 cm/sec. Peak systolic flow velocity of the ICA is 83 cm/sec. The ICA/CCA ratio is 0.9. Peak end diastolic flow velocity of the ICA is 28 cm/sec. Peak systolic flow velocity of the ECA is 108 cm/sec. No significant plaque formation is identified. Vertebral arteries: Bilateral vertebral arteries demonstrate antegrade flow. IMPRESSION: 1. No hemodynamically significant internal carotid artery stenosis. 2. Mild atheromatous plaque. MRI BRAIN AND INTERNAL AUDITORY CANALS WITHOUT AND WITH CONTRAST, 02/14/2021[facility]: TECHNIQUE: 0.3T MR: Multiplanar/multisequence pre/postcontrast brain/IAC protocol. CONTRAST: 18 cc of Clariscan was administered intravenously, 2 cc of the contrast vial was discarded. INDICATION: Asymmetrical sensorineural hearing loss. COMPARISON: None. FINDINGS: RIGHT - TEMPORAL BONE: Vestibulocochlear and facial nerves appear normal. Cochlea, vestibule, vestibular aqueduct and semicircular canals appear normal. Mastoid/petrous air cells and middle ear are clear. The jugular foramen appears normal. LEFT - TEMPORAL BONE: Vestibulocochlear and facial nerves appear normal. Cochlea, vestibule, vestibular aqueduct and semicircular canals appear normal. Mastoid/petrous air cells and middle ear are clear. The jugular foramen appears normal. BRAIN/MENINGES: The ventricles and sulci are within normal limits for age. No mass lesion or mass effect. No abnormal enhancement. No acute intracranial hemorrhage or vascular territory infarct. No significant white matter lesions present. No diffusion abnormality present. PARASELLAR: Pituitary gland, infundibulum, suprasellar cistern and cavernous sinuses appear normal. SINONASAL: Nasal fossa, nasopharynx and parapharyngeal fascia appear normal. There is mild mucosal thickening in the ethmoid air cells bilaterally. CRANIOFACIAL: Craniocervical junction and upper visualized cervical spine appear normal. The visualized orbits appear normal. Bilateral lens implants are present. VASCULATURE: Vertebrobasilar and carotid/cerebral vasculature appear normal. There are no signs of vascular malformation. Venous sinuses appear normal. IMPRESSION: MRI IACs: 1. Unremarkable MRI of the internal auditory canals bilaterally. 2. No mass lesion or abnormal enhancement in the IACs bilaterally. 3. Unremarkable appearance of the inner ear structures bilaterally. MRI brain: 1. Unremarkable MRI of the brain. 2. Mild ethmoid sinusitis bilaterally. 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 Nonspecific vestibular dysfunction, negative brain MRI recently, I do not have details of the [facility], but usually if they think a neurologist should be involved, they did not find anything they could work with. Recommendations: I am reluctantly agreeing to repeat the brain MRI No further stroke work-up unless it is positive Rehabilitation therapies. Home tomorrow with reassurance if MRI is negative Follow-up with me as needed, she can tell [facility] that she has had her neurological evaluation. Thank you for letting me help with the patient's care. ROSA CORTEZ MD Mar 11, 2021 18:30
--- NOTE | 2021-03-11 18:37 | NUR ---
1445 plavix was not given in ED. Pt arrived on this unit at 1800. Will give plavix as soon as possible
[2021-03-11] MEDS ORDERED: OMEP40CA7 PO (19:52)
[2021-03-11] MEDS ORDERED: FAMO40TA4 PO (19:52)
[2021-03-11] MEDS ORDERED: SULF1TAB24 PO (19:57)
[2021-03-11] MEDS ORDERED: CARV6.2511 PO (19:59)
[2021-03-11] MEDS ORDERED: KETOCONAZOLE 2% SHAMPOO 120ML BOTTLE. TP PRN (20:00)
[2021-03-11] MEDS ORDERED: HYDROcodone/APAP 5/325MG 1 TAB TABLET PO PRN (20:00)
[2021-03-11] MEDS ORDERED: ALPR1TAB6 PO (20:00)
[2021-03-11] MEDS ORDERED: MILN50TA PO (20:02)
[2021-03-11] MEDS ORDERED: FURO40TA4 PO (20:03)
[2021-03-11] MEDS ORDERED: POTA10TA6 PO (20:04)
[2021-03-11 20:05] VITALS: BP 139/64
[2021-03-11] MEDS ORDERED: DULO60CA6 PO (20:05)
[2021-03-11] MEDS ORDERED: PRED-220 PO (20:06)
[2021-03-11] MEDS ORDERED: ATOR20TA58 PO (20:07)
[2021-03-11] MEDS ORDERED: CYCL10TA2 PO (20:08)
[2021-03-11] MEDS ORDERED: NYST15CR2 TP (20:09)
[2021-03-11] MEDS ORDERED: KETO120S4 TP (20:10)
--- NOTE | 2021-03-11 20:10 | PDOC ---
Provider Note Date of Service: DATE: 03/11/21 TIME: 20:10 Provider Note history and physical dictated # [id number] Justifications for Admission Other Justification CHEO CHIN MD Mar 11, 2021 20:10
[2021-03-11] MEDS ORDERED: TRIA80OI TP (20:11)
[2021-03-11] MEDS ORDERED: OMEG-168 PO (20:13)
[2021-03-11] MEDS ORDERED: TURM538C PO (20:14)
[2021-03-11] MEDS ORDERED: LACT1CAP19 PO (20:15)
[2021-03-11] MEDS ORDERED: GLUC-11 PO (20:16)
[2021-03-11] MEDS ORDERED: FAMOTIDINE 20 MG TABLET. PO SCH (21:00)
[2021-03-11] MEDS: TRIAMCINOLONE ACETONIDE 0.1% TOPICAL CREAM 15GM TUBE. TP SCH (21:00)
[2021-03-11] MEDS ORDERED: traZODone 50 MG TABLET. PO SCH (21:00)
[2021-03-11] MEDS: MILNACIPRAN HCL 50 MG PO SCH (21:00)
[2021-03-11] MEDS ORDERED: ATORVASTATIN CALCIUM 20 MG TABLET PO SCH (21:00)
[2021-03-11] MEDS: NYSTATIN 100,000 UNIT/GM TOPICAL CREAM 15GM TUBE. TP SCH (21:00)
[2021-03-11] MEDS ORDERED: ALPRAZolam 1 MG TABLET PO SCH (21:00)
[2021-03-11] MEDS ORDERED: TRIAMCINOLONE ACETONIDE 0.1% TOPICAL CREAM 15GM TUBE. TP PRN (21:00)
[2021-03-11] MEDS: SMZ/TMP 800/160MG TABLET. PO SCH (21:07)
[2021-03-11] MEDS: CYCLOBENZAPRINE 10 MG TABLET. PO SCH (21:07)
--- NOTE | 2021-03-11 21:58 | HP ---
ADMIT DATE: 03/11/2021 LOCATION: She is in room 260. HISTORY OF PRESENT ILLNESS: The patient is a 75-year-old white female with history of diabetes mellitus type 2 with peripheral neuropathy, treated with diet, hypertension, hyperlipidemia, hypothyroidism, fibromyalgia, history of Delgadillo's palsy on the right side who was recently started on Bactrim double strength and a prednisone taper by her ear, nose and throat doctor for ethmoid sinusitis and has had problems with imbalance and was seen at the [facility] where she was treated. She called me earlier today and was complaining of numbness in the arms and legs and worsening weakness in the right side of the face and was sent to the [facility] Emergency Room. She was hemodynamically stable. Labs were fine and her EKG showed normal sinus rhythm with no change and a CAT scan of the head without contrast was unremarkable. The patient was seen by Dr. 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 Apparently, her symptoms began about two days ago during a stressful conversation with the family member. The patient is therefore admitted for further evaluation and treatment of her current symptoms. Dr. Spring saw the patient already in consultation and ordered an MRI of the brain, which will be done tomorrow. ALLERGIES AND INTOLERANCES: INCLUDE AUGMENTIN, WHICH CAUSES DIARRHEA; QUINAPRIL; METFORMIN AND CODEINE. MEDICATIONS: Prior to admission include Xanax 0.5 mg b.i.d., 1 mg at bedtime; aspirin 81 mg every day; atorvastatin 20 mg every day; carvedilol 6.25 mg b.i.d.; Cymbalta 60 mg every day; furosemide 40 mg every day; [place] 5/325 one every 4 hours p.r.n.; levothyroxine 75 mcg every day; losartan 50 mg every day; multivitamin once a day; omeprazole 40 mg every day; potassium chloride 20 mEq every day; Savella 50 mg b.i.d.; trazodone 150 mg at bedtime; Bactrim double strength 1 b.i.d., I think she has about 7 more days left on that course; prednisone taper 30 mg every day for 3 days, 20 mg every day for 3 days, 10 mg every day for 3 days and eventually off the prednisone. PAST MEDICAL HISTORY: Significant for diabetes mellitus type 2, currently treated with diet; with peripheral neuropathy; hypertension; hyperlipidemia; hypothyroidism; venous insufficiency of the legs, which has improved with an increased dose of furosemide 40 mg p.o. daily. She has fibromyalgia, osteoarthritis, gastroesophageal reflux disease, obstructive sleep apnea, depression. She had a deep vein thrombosis in left lower extremity in 2004, history of right Delgadillo's palsy in the past, colon polypectomy in 2011, appendectomy. She has had a D and C. She had an arthroscopic repair of a left medial meniscus in the past as well as abdominal hernia repair in 2010. She has lumbar spondylosis, depression and some cervical and lumbar spondylosis. SOCIAL HISTORY: She does not drink alcohol nor does she smoke cigarettes. She is . 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 FAMILY HISTORY: Noncontributory. REVIEW OF SYSTEMS: GENERAL: No fever, chills or sweats in last three days. CARDIOVASCULAR: No chest pain. PULMONARY: Cough and shortness of breath. GASTROINTESTINAL: No constipation. ENDOCRINE: She has diabetes mellitus. SKIN: No rashes. The rest of systems reviewed and are negative except as stated in history of present illness. PHYSICAL EXAMINATION: VITAL SIGNS: Temperature is 97.8 degrees, heart rate is regular at 63, respiratory rate is 18, blood pressure 133/79, oxygen saturation 99% on room air. HEENT: Eyes, gaze is conjugate. Extraocular muscles are intact. Mouth: Tongue is midline. NECK: There is no cervical lymphadenopathy or thyroid enlargement. HEART: Reveals an S1, S2. There is no S3 or murmur. LUNGS: Clear. ABDOMEN: Soft, obese with no hepatosplenomegaly, masses or tenderness. EXTREMITIES: Lower extremities without edema. Dorsalis pedis pulses are present bilaterally. SKIN: No rashes. NEUROLOGIC: She is coherent. She has got a chronic right facial weakness from her previous Delgadillo's palsy. She has got 5/5 bilateral hand service desk agent and biceps strength. She is able to dorsi and plantarflex both feet, bend her knees and raise her legs up in the air without any focal weakness in the lower extremities. [id number] testing was normal bilaterally. LABORATORY DATA: White count 10.8; hemoglobin 13.3; platelet count 257,000; 59 polys, 32 lymphocytes. With an INR of 0.9, sodium 138, potassium 4.4, chloride 100, total CO2 of 32, BUN 19, creatinine 1.2. Blood sugar 118. Liver function tests normal with an albumin of 4.2. Troponin level is less than 0.017. ProBNP was 205. Fingerstick blood sugar was 101 before dinner. Urinalysis showed 5-10 white cells. Urine culture is pending. She received a dose of nitrofurantoin in Emergency Room but she is currently on Bactrim double strength. That was more for a sinus infection treated prior to admission, she is still taking it. The patient had electrocardiogram, it showed normal sinus rhythm, no acute change. CAT scan of the head done in the Emergency Room showed no acute abnormality and she also had a carotid Doppler done bilaterally, which showed no significant stenosis of the carotid arteries. She had mild plaque in the internal carotid arteries bilaterally. ASSESSMENT: 1. Imbalance due to vestibular dysfunction. 2. Acute ethmoid sinusitis, treated with Bactrim double strength and prednisone taper. 3. Diabetes mellitus type 2 with peripheral neuropathy. 4. Hypertension. 5. Hyperlipidemia. 6. Hypothyroidism. 7. Fibromyalgia. 8. 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 PLAN: At this time, the patient had already been seen by Dr. Spring in consultation. It should be noted the patient did have an MRI of the brain done on 02/14/2021, which was unremarkable. There is no evidence of acoustic neuroma and Dr. Mora has written for another MRI of the brain; it is hopeful to be done tomorrow. The plan is if the MRI of the brain is negative, she will be able to be dismissed tomorrow and she is in agreement with that. We will continue with her home medications. She today got a dose of Plavix in the Emergency Room, but for now, we will discontinue that and just go with the aspirin 81 mg every day that she was taking prior to admission. She denies any vertigo. We will also get an admitting chest x-ray on her also and continue with the telemetry. She will be placed on a diabetic diet. We will watch out for any steroid-induced hyperglycemia. It should be noted that I did have her walk in the room and she did have some balance problems that she had before also, but she walks without any assistive device. Thank you very much. MARRY/BERNIE/CAITIE DR: Colleen TID: [id number]
[2021-03-11 23:29] VITALS: BP 103/56
[2021-03-12 03:45] VITALS: BP 96/52
[2021-03-12] MEDS ORDERED: LEVOTHYROXINE 75 MCG TABLET PO SCH (06:00)
[2021-03-12 07:00] VITALS: BP 111/60
[2021-03-12 07:13] LABS: BASO % 0 % (0-3); EOS # 0.2 x10^3/uL (0.0-0.7); EOS % 3 % (0-3); HEMATOCRIT 38.4 % (36.0-47.0); HEMOGLOBIN 12.8 g/dL (12.0-15.5); LYMPH # 3.1 x10^3/uL (1.0-4.8); LYMPH % 39 % (24-48); MEAN CORPUSCULAR HEMOGLOBIN 31 pg (25-35); MEAN CORPUSCULAR HGB CONC 33 g/dL (31-37); MEAN CORPUSCULAR VOLUME 94 fL (79-100); MONO # 0.6 x10^3/uL (0.0-1.1); MONO % 8 % (0-9); NEUT % 50 % (31-73); PLATELET COUNT 218 x10^3/uL (140-400); RED BLOOD COUNT 4.09 x10^6/uL (3.50-5.40); RED CELL DISTRIBUTION WIDTH 13.3 % (11.5-14.5)
[2021-03-12 07:29] LABS: GFR 54.2; POTASSIUM 3.9 mmol/L (3.5-5.1)
[2021-03-12] MEDS ORDERED: PANTOPRAZOLE 40 MG TABLET.DR. PO SCH (07:30)
--- NOTE | 2021-03-12 07:40 | RAD ---
EXAMINATION: XR CHEST 1V CLINICAL HISTORY: Hypertension EXAM DATE/TIME: 03/12/2021 7:21 AM COMPARISON: None FINDINGS: Lines, Tubes, and Devices: Calculus Cardiomediastinal Silhouette: Within normal limits. Lungs and Pleura: 1 cm focal opacity in the lateral left lower lung zone, possibly a pulmonary nodule . No evidence of focal airspace consolidation or pleural effusion. Pulmonary vasculature unremarkable . Bones and Soft Tissues: Degenerative changes of the thoracic spine. IMPRESSION: No evidence of acute cardiopulmonary abnormality. 1 cm focal opacity in the lateral left lower lung zone, possibly a pulmonary nodule. Nonemergent CT c hest could be obtained for further evaluation. Electronically signed by: Medhat Lara DO (03/12/2021 7:38 AM) [place]
[2021-03-12] MEDS ORDERED: CARVEDILOL 6.25 MG TABLET. PO SCH (08:00)
[2021-03-12] MEDS ORDERED: NON FORMULARY ITEM (Glucosamine Hcl/Chondr Su A Na (Cidaflex Tablet) 1 TAB) PO SCH (08:00)
[2021-03-12] MEDS ORDERED: POTASSIUM CHLORIDE 20 MEQ TABLET.ER. PO SCH (08:00)
[2021-03-12] MEDS: ALPRAZolam 0.5 MG TABLET PO SCH ×2 (08:44→14:00)
[2021-03-12] MEDS: SMZ/TMP 800/160MG TABLET. PO SCH (08:44)
[2021-03-12] MEDS: CYCLOBENZAPRINE 10 MG TABLET. PO SCH ×2 (08:44→14:00)
[2021-03-12 08:46] VITALS: BP 111/60
[2021-03-12] MEDS: TRIAMCINOLONE ACETONIDE 0.1% TOPICAL CREAM 15GM TUBE. TP SCH (08:47)
[2021-03-12] MEDS: NYSTATIN 100,000 UNIT/GM TOPICAL CREAM 15GM TUBE. TP SCH (08:47)
[2021-03-12] MEDS: MILNACIPRAN HCL 50 MG PO SCH (08:48)
[2021-03-12] MEDS ORDERED: DULoxetine HCL 30 MG CAPSULE.DR PO SCH (09:00)
[2021-03-12] MEDS ORDERED: predniSONE 10 MG TABLET PO SCH (09:00)
[2021-03-12] MEDS ORDERED: LOSARTAN POTASSIUM 50 MG TABLET. PO SCH (09:00)
[2021-03-12] MEDS ORDERED: MULTIVITAMIN with MINERAL TABLET. PO SCH (09:00)
[2021-03-12] MEDS ORDERED: OMEGA-3 FATTY ACIDS/FISH OIL 1,000 MG CAPSULE. PO SCH (09:00)
[2021-03-12] MEDS ORDERED: LACTOBACILLUS RHAMNOSUS GG 1 CAPSULE. PO SCH (09:00)
[2021-03-12] MEDS ORDERED: FUROSEMIDE 40 MG TABLET. PO SCH (09:00)
[2021-03-12] MEDS ORDERED: TURMERIC ROOT EXTRACT 538 MG PO SCH (09:00)
[2021-03-12] MEDS ORDERED: POTASSIUM CHLORIDE 10 MEQ/100 ML IV ONE (09:00)
[2021-03-12] MEDS ORDERED: ASPIRIN ENTERIC COATED 81 MG TABLET.DR. PO SCH (09:00)
--- NOTE | 2021-03-12 10:19 | PDOC ---
PROGRESS NOTES Date of Service DATE: 03/12/21 TIME: 10:14 Subjective Subjective feels better. bp and blood sugars and lab are okay. cxr with possible LLL 1cm lung nodules and discussed with her that ct chest to be done as out patient. able to ambulate in room but does have balance problems but she takes small steps and corrects her imbalance on her own. she has a walker at home and recommended that she use it. denies vertigo. 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 walks with norma imblance. no falls) Psych/Mental Status: Mental status NL Skin: No rashes Assessment Assessment Problems1. Imbalance due to vestibular dysfunction. 2. Acute ethmoid sinusitis, treated with Bactrim double strength and prednisone taper. 3. Diabetes mellitus type 2 with peripheral neuropathy. 4. Hypertension. 5. Hyperlipidemia. 6. Hypothyroidism. 7. Fibromyalgia. 8. 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 possible 1 cm LLL lung nodule on cxr Medical Problems: (1) CVA (cerebral vascular accident) Status: Acute (2) Headache Status: Acute (3) UTI (urinary tract infection) Status: Acute Plan Plan of Care MRI brain today dismiss todayif MRI brain negative discussed with patient and her nurse out patient ct chest Comment Review of Relevant I have reviewed the following items khadra (where applicable) has been applied. Labs Laboratory Tests Test 03/11/21 12:50 03/11/21 13:05 03/11/21 13:06 03/11/21 18:08 Urine Collection Type Unknown Urine Color Yellow Urine Clarity Clear Urine pH 6.0 (<5.0-8.0) Urine Specific [place] 1.010 (1.000-1.030) Urine Protein Negative mg/dL (NEG-TRACE) Urine Glucose (UA) Negative mg/dL (NEG) Urine Ketones (Stick) Negative mg/dL (NEG) Urine Blood Negative (NEG) Urine Nitrite Negative (NEG) Urine Bilirubin Negative (NEG) Urine Urobilinogen Dipstick 0.2 mg/dL (0.2 mg/dL) Urine Leukocyte Esterase Moderate (NEG) Urine RBC Occ /HPF (0-2) Urine WBC 5-10 /HPF (0-4) Urine Squamous Epithelial Cells Few /LPF Urine Bacteria Moderate /HPF (0-FEW) Urine Hyaline Casts Few /HPF Glucose (Fingerstick) 130 mg/dL (70-99) 101 mg/dL (70-99) White Blood Count 10.8 x10^3/uL (4.0-11.0) Red Blood Count 4.28 x10^6/uL (3.50-5.40) Hemoglobin 13.3 g/dL (12.0-15.5) Hematocrit 39.9 % (36.0-47.0) Mean Corpuscular Volume 93 fL (79-100) Mean Corpuscular Hemoglobin 31 pg (25-35) Mean Corpuscular Hemoglobin Concent 33 g/dL (31-37) Red Cell Distribution Width 13.2 % (11.5-14.5) Platelet Count 257 x10^3/uL (140-400) Neutrophils (%) (Auto) 59 % (31-73) Lymphocytes (%) (Auto) 32 % (24-48) Monocytes (%) (Auto) 8 % (0-9) Eosinophils (%) (Auto) 1 % (0-3) Basophils (%) (Auto) 1 % (0-3) Neutrophils # (Auto) 6.4 x10^3/uL (1.8-7.7) Lymphocytes # (Auto) 3.4 x10^3/uL (1.0-4.8) Monocytes # (Auto) 0.9 x10^3/uL (0.0-1.1) Eosinophils # (Auto) 0.1 x10^3/uL (0.0-0.7) Basophils # (Auto) 0.0 x10^3/uL (0.0-0.2) Sodium Level 138 mmol/L (136-145) Potassium Level 4.4 mmol/L (3.5-5.1) Chloride Level 100 mmol/L (98-107) Carbon Dioxide Level 32 mmol/L (21-32) Anion Gap 6 (6-14) Blood Urea Nitrogen 19 mg/dL (7-20) Creatinine 1.2 mg/dL (0.6-1.0) Estimated GFR (Cockcroft-Gault) 43.9 BUN/Creatinine Ratio 16 (6-20) Glucose Level 118 mg/dL (70-99) Calcium Level 8.9 mg/dL (8.5-10.1) Phosphorus Level 3.7 mg/dL (2.6-4.7) Magnesium Level 2.3 mg/dL (1.8-2.4) Total Bilirubin 0.8 mg/dL (0.2-1.0) Aspartate Amino Transf (AST/SGOT) 16 U/L (15-37) Alanine Aminotransferase (ALT/SGPT) 25 U/L (14-59) Alkaline Phosphatase 59 U/L (46-116) Troponin I Quantitative < 0.017 ng/mL (0.000-0.055) EJ-Cxq-S-Type Natriuretic Peptide 205 pg/mL (0-124) Total Protein 6.9 g/dL (6.4-8.2) Albumin 4.2 g/dL (3.4-5.0) Albumin/Globulin Ratio 1.6 (1.0-1.7) Test 03/11/21 18:45 03/11/21 20:32 03/12/21 06:45 03/12/21 08:01 Prothrombin Time 12.0 SEC (11.7-14.0) Prothromb Time International Ratio 0.9 (0.8-1.1) Glucose (Fingerstick) 120 mg/dL (70-99) 89 mg/dL (70-99) White Blood Count 8.0 x10^3/uL (4.0-11.0) Red Blood Count 4.09 x10^6/uL (3.50-5.40) Hemoglobin 12.8 g/dL (12.0-15.5) Hematocrit 38.4 % (36.0-47.0) Mean Corpuscular Volume 94 fL (79-100) Mean Corpuscular Hemoglobin 31 pg (25-35) Mean Corpuscular Hemoglobin Concent 33 g/dL (31-37) Red Cell Distribution Width 13.3 % (11.5-14.5) Platelet Count 218 x10^3/uL (140-400) Neutrophils (%) (Auto) 50 % (31-73) Lymphocytes (%) (Auto) 39 % (24-48) Monocytes (%) (Auto) 8 % (0-9) Eosinophils (%) (Auto) 3 % (0-3) Basophils (%) (Auto) 0 % (0-3) Neutrophils # (Auto) 4.0 x10^3/uL (1.8-7.7) Lymphocytes # (Auto) 3.1 x10^3/uL (1.0-4.8) Monocytes # (Auto) 0.6 x10^3/uL (0.0-1.1) Eosinophils # (Auto) 0.2 x10^3/uL (0.0-0.7) Basophils # (Auto) 0.0 x10^3/uL (0.0-0.2) Sodium Level 140 mmol/L (136-145) Potassium Level 3.9 mmol/L (3.5-5.1) Chloride Level 103 mmol/L (98-107) Carbon Dioxide Level 33 mmol/L (21-32) Anion Gap 4 (6-14) Blood Urea Nitrogen 17 mg/dL (7-20) Creatinine 1.0 mg/dL (0.6-1.0) Estimated GFR (Cockcroft-Gault) 54.2 Glucose Level 88 mg/dL (70-99) Calcium Level 9.0 mg/dL (8.5-10.1) Laboratory Tests Test 03/11/21 12:50 03/11/21 13:05 03/11/21 13:06 03/11/21 18:08 Urine Collection Type Unknown Urine Color Yellow Urine Clarity Clear Urine pH 6.0 (<5.0-8.0) Urine Specific [place] 1.010 (1.000-1.030) Urine Protein Negative mg/dL (NEG-TRACE) Urine Glucose (UA) Negative mg/dL (NEG) Urine Ketones (Stick) Negative mg/dL (NEG) Urine Blood Negative (NEG) Urine Nitrite Negative (NEG) Urine Bilirubin Negative (NEG) Urine Urobilinogen Dipstick 0.2 mg/dL (0.2 mg/dL) Urine Leukocyte Esterase Moderate (NEG) Urine RBC Occ /HPF (0-2) Urine WBC 5-10 /HPF (0-4) Urine Squamous Epithelial Cells Few /LPF Urine Bacteria Moderate /HPF (0-FEW) Urine Hyaline Casts Few /HPF Glucose (Fingerstick) 130 mg/dL (70-99) 101 mg/dL (70-99) White Blood Count 10.8 x10^3/uL (4.0-11.0) Red Blood Count 4.28 x10^6/uL (3.50-5.40) Hemoglobin 13.3 g/dL (12.0-15.5) Hematocrit 39.9 % (36.0-47.0) Mean Corpuscular Volume 93 fL (79-100) Mean Corpuscular Hemoglobin 31 pg (25-35) Mean Corpuscular Hemoglobin Concent 33 g/dL (31-37) Red Cell Distribution Width 13.2 % (11.5-14.5) Platelet Count 257 x10^3/uL (140-400) Neutrophils (%) (Auto) 59 % (31-73) Lymphocytes (%) (Auto) 32 % (24-48) Monocytes (%) (Auto) 8 % (0-9) Eosinophils (%) (Auto) 1 % (0-3) Basophils (%) (Auto) 1 % (0-3) Neutrophils # (Auto) 6.4 x10^3/uL (1.8-7.7) Lymphocytes # (Auto) 3.4 x10^3/uL (1.0-4.8) Monocytes # (Auto) 0.9 x10^3/uL (0.0-1.1) Eosinophils # (Auto) 0.1 x10^3/uL (0.0-0.7) Basophils # (Auto) 0.0 x10^3/uL (0.0-0.2) Sodium Level 138 mmol/L (136-145) Potassium Level 4.4 mmol/L (3.5-5.1) Chloride Level 100 mmol/L (98-107) Carbon Dioxide Level 32 mmol/L (21-32) Anion Gap 6 (6-14) Blood Urea Nitrogen 19 mg/dL (7-20) Creatinine 1.2 mg/dL (0.6-1.0) Estimated GFR (Cockcroft-Gault) 43.9 BUN/Creatinine Ratio 16 (6-20) Glucose Level 118 mg/dL (70-99) Calcium Level 8.9 mg/dL (8.5-10.1) Phosphorus Level 3.7 mg/dL (2.6-4.7) Magnesium Level 2.3 mg/dL (1.8-2.4) Total Bilirubin 0.8 mg/dL (0.2-1.0) Aspartate Amino Transf (AST/SGOT) 16 U/L (15-37) Alanine Aminotransferase (ALT/SGPT) 25 U/L (14-59) Alkaline Phosphatase 59 U/L (46-116) Troponin I Quantitative < 0.017 ng/mL (0.000-0.055) SW-Sep-K-Type Natriuretic Peptide 205 pg/mL (0-124) Total Protein 6.9 g/dL (6.4-8.2) Albumin 4.2 g/dL (3.4-5.0) Albumin/Globulin Ratio 1.6 (1.0-1.7) Test 03/11/21 18:45 03/11/21 20:32 03/12/21 06:45 03/12/21 08:01 Prothrombin Time 12.0 SEC (11.7-14.0) Prothromb Time International Ratio 0.9 (0.8-1.1) Glucose (Fingerstick) 120 mg/dL (70-99) 89 mg/dL (70-99) White Blood Count 8.0 x10^3/uL (4.0-11.0) Red Blood Count 4.09 x10^6/uL (3.50-5.40) Hemoglobin 12.8 g/dL (12.0-15.5) Hematocrit 38.4 % (36.0-47.0) Mean Corpuscular Volume 94 fL (79-100) Mean Corpuscular Hemoglobin 31 pg (25-35) Mean Corpuscular Hemoglobin Concent 33 g/dL (31-37) Red Cell Distribution Width 13.3 % (11.5-14.5) Platelet Count 218 x10^3/uL (140-400) Neutrophils (%) (Auto) 50 % (31-73) Lymphocytes (%) (Auto) 39 % (24-48) Monocytes (%) (Auto) 8 % (0-9) Eosinophils (%) (Auto) 3 % (0-3) Basophils (%) (Auto) 0 % (0-3) Neutrophils # (Auto) 4.0 x10^3/uL (1.8-7.7) Lymphocytes # (Auto) 3.1 x10^3/uL (1.0-4.8) Monocytes # (Auto) 0.6 x10^3/uL (0.0-1.1) Eosinophils # (Auto) 0.2 x10^3/uL (0.0-0.7) Basophils # (Auto) 0.0 x10^3/uL (0.0-0.2) Sodium Level 140 mmol/L (136-145) Potassium Level 3.9 mmol/L (3.5-5.1) Chloride Level 103 mmol/L (98-107) Carbon Dioxide Level 33 mmol/L (21-32) Anion Gap 4 (6-14) Blood Urea Nitrogen 17 mg/dL (7-20) Creatinine 1.0 mg/dL (0.6-1.0) Estimated GFR (Cockcroft-Gault) 54.2 Glucose Level 88 mg/dL (70-99) Calcium Level 9.0 mg/dL (8.5-10.1) Medications Current Medications Sodium Chloride 1,000 ml @ 1,000 mls/hr 1X ONCE IV Last administered on 03/11/21at 14:28; Start 03/11/21 at 14:15; Stop 03/11/21 at 15:14; Status DC Prochlorperazine Edisylate (Compazine) 10 mg 1X ONCE IV Last administered on 03/11/21at 14:29; Start 03/11/21 at 14:15; Stop 03/11/21 at 14:21; Status DC Diphenhydramine HCl (Benadryl) 25 mg 1X ONCE IVP Last administered on 03/11/21at 14:29; Start 03/11/21 at 14:15; Stop 03/11/21 at 14:21; Status DC Nitrofurantoin Macrocrystals (Macrobid) 100 mg 1X ONCE PO Last administered on 03/11/21at 15:23; Start 03/11/21 at 14:15; Stop 03/11/21 at 14:21; Status DC Clopidogrel Bisulfate (Plavix) 75 mg 1X ONCE PO ; Start 03/11/21 at 14:45; Stop 03/11/21 at 14:46; Status Cancel Ondansetron HCl (Zofran) 4 mg PRN Q8HRS PRN IV NAUSEA/VOMITING; Start 03/11/21 at 14:45; Stop 03/12/21 at 14:44 Fentanyl Citrate (Fentanyl 2ml Vial) 50 mcg PRN Q1HR PRN IV PAIN; Start 03/11/21 at 14:45; Stop 03/12/21 at 14:44 Acetaminophen (Tylenol) 650 mg PRN Q4HRS PRN PO FEVER > 100.3'F; Start 03/11/21 at 14:45; Stop 03/11/21 at 20:03; Status DC Clopidogrel Bisulfate (Plavix) 75 mg 1X ONCE PO Last administered on 03/11/21at 21:07; Start 03/11/21 at 19:45; Stop 03/11/21 at 19:46; Status DC Acetaminophen (Tylenol) 650 mg PRN Q6HRS PRN PO MILD PAIN / TEMP > 100.3'F; Start 03/11/21 at 20:00 Alprazolam (Xanax) 0.5 mg BID92 PO Last administered on 03/12/21at 08:44; Start 03/12/21 at 09:00 Alprazolam (Xanax) 1 mg HS PO Last administered on 03/11/21at 21:07; Start 03/11/21 at 21:00 Aspirin (Ecotrin) 81 mg DAILY PO Last administered on 03/12/21at 08:44; Start 03/12/21 at 09:00 Atorvastatin Calcium (Lipitor) 20 mg HS PO Last administered on 03/11/21at 21:07; Start 03/11/21 at 21:00 Carvedilol (Coreg) 6.25 mg BIDWMEALS PO Last administered on 03/12/21 08:46; Start 03/12/21 at 08:00 Cyclobenzaprine HCl (Flexeril) 10 mg TID PO Last administered on 03/12/21 08:44; Start 03/11/21 at 21:00 Furosemide (Lasix) 40 mg DAILY PO Last administered on 7/4/21at 08:45; Start 03/12/21 at 09:00 Acetaminophen/ Hydrocodone Bitart (Lortab 5/325) 1 tab PRN Q6HRS PRN PO MODERATE TO SEVERE PAIN; Start 03/11/21 at 20:00 Ketoconazole (Nizoral 2% Shampoo) 1 brenda WEEKLY PRN TP dry scalp; Start 03/11/21 at 20:00 Lactobacillus Rhamnosus (Culturelle) 1 cap DAILY PO Last administered on 03/12/21at 08:45; Start 03/12/21 at 09:00 Levothyroxine Sodium (Synthroid) 75 mcg DAILY06 PO Last administered on 03/12/21at 06:08; Start 03/12/21 at 06:00 Prednisone (Prednisone) 30 mg DAILY PO Last administered on 03/12/21at 08:45; Start 03/12/21 at 09:00 Trimethoprim/ Sulfamethoxazole (Bactrim Ds) 1 tab BID PO Last administered on 03/12/21at 08:44; Start 03/11/21 at 21:00 Trazodone HCl (Desyrel) 150 mg HS PO Last administered on 03/11/21at 21:06; Start 03/11/21 at 21:00 Duloxetine HCl (Cymbalta) 60 mg DAILY PO Last administered on 03/12/21at 08:44; Start 03/12/21 at 09:00 Famotidine (Pepcid) 40 mg HS PO Last administered on 03/11/21at 21:06; Start 03/11/21 at 21:00 Non-Formulary Medication (Glucosamine Hcl/ Chondr Miller A Na (Cidaflex Tablet)) 1 tab BIDWMEALS PO ; Start 03/12/21 at 08:00; Status Cancel Losartan Potassium (Cozaar) 50 mg DAILY PO ; Start 03/12/21 at 09:00 Non-Formulary Medication (Milnacipran Hcl (Savella)) 50 mg BID PO ; Start 03/11/21 at 21:00; Status UNV Multivitamins (Thera M Plus) 1 tab DAILY PO Last administered on 03/12/21at 08:44; Start 03/12/21 at 09:00 Nystatin (Mycostatin) 1 brenda BID TP ; Start 03/11/21 at 21:00 Fish Oil (Fish Oil) 1,000 mg DAILY PO Last administered on 03/12/21at 08:45; Start 03/12/21 at 09:00 Pantoprazole Sodium (Protonix) 40 mg DAILYAC PO Last administered on 03/12/21at 06:09; Start 03/12/21 at 07:30 Potassium Chloride (Klor-Con) 10 meq BIDWMEALS PO Last administered on 03/12/21at 08:45; Start 03/12/21 at 08:00 Triamcinolone Acetonide (Kenalog 0.1%) 1 brenda PRN BID PRN TP ITCHING; Start 03/11/21 at 21:00 Non-Formulary Medication (Turmeric Root Extract (Turmeric)) 538 mg DAILY PO ; Start 03/12/21 at 09:00; Status UNV Triamcinolone Acetonide (Kenalog 0.1%) 1 brenda BID TP ; Start 03/11/21 at 21:00 Active Scripts Active [place] 5-325 Tablet (Acetaminophen/Hydrocodone Bitart) 1 Each Tablet 1 Tab PO PRN Q6HRS PRN Reported Cidaflex Tablet (Glucosamine Hcl/Chondr Miller A Na) 1 Each Tablet 1 Tab PO BID 30 Days Culturelle (Lactobacillus Rhamnosus Gg) 1 Each Cap.sprink 1 Each PO DAILY Turmeric (Turmeric Root Extract) 538 Mg Capsule 538 Mg PO DAILY Fish Oil 1,200 Mg Softgel ([place]-3S/Dha/Epa/Fish Oil) 1 Each Capsule 1 Each PO DAILY Triamcinolone Acetonide 80 Gm Oint...g. 1 Brenda TP BID PRN Ketoconazole 120 Ml Shampoo 1 Brenda TP TWICE WEEKLY 30 Days with at least 3 days between each shampooing Nystatin-Triamcinolone Cream (Nystatin/Triamcin) 15 Gm Cream..g. 1 Brenda TP BID Cyclobenzaprine Hcl 10 Mg Tablet 10 Mg PO TID Atorvastatin Calcium 20 Mg Tablet 20 Mg PO HS Prednisone (Prednisone) 10 Mg Tablet 30 Mg PO DAILY Cymbalta (Duloxetine Hcl) 60 Mg Capsule.dr 60 Mg PO DAILY Klor-Con 10 (Potassium Chloride) 10 Meq Tablet.er 10 Meq PO BID Furosemide 40 Mg Tablet 40 Mg PO DAILY Savella (Milnacipran Hcl) 50 Mg Tablet 50 Mg PO BID Alprazolam 1 Mg Tablet 1 Mg PO HS Carvedilol (Carvedilol) 6.25 Mg Tablet 6.25 Mg PO BIDWMEALS Bactrim Ds Tablet (Sulfamethoxazole/Trimethoprim) 1 Each Tablet 1 Each PO BID Famotidine 40 Mg Tablet 40 Mg PO HS Omeprazole 40 Mg Capsule.dr 40 Mg PO DAILY Alprazolam 0.5 Mg Tablet 1 Tab PO BID92 Multivitamins (Multivitamin) 1 Each Tablet 1 Tab PO DAILY Aspir 81 (Aspirin) 81 Mg Tablet.dr 81 Mg PO DAILY Losartan Potassium 100 Mg Tablet 50 Mg PO DAILY Trazodone Hcl 50 Mg Tablet 150 Mg PO HS Levothyroxine Sodium 75 Mcg Tablet 75 Mcg PO DAILYAC Vitals/I & O Vital Sign - Last 24 Hours 03/11/21 03/11/21 03/11/21 03/11/21 12:35 12:42 13:15 13:45 Temp 97.8 97.8 Pulse 68 73 62 59 Resp 22 16 19 17 B/P (MAP) 149/98 (115) 141/78 (99) 117/65 (82) 127/58 (81) Pulse Ox 96 98 97 98 O2 Delivery Room Air Room Air Room Air 03/11/21 03/11/21 03/11/21 03/11/21 14:15 14:32 15:00 15:24 Temp 97.8 97.8 Pulse 58 57 63 64 Resp 23 14 23 22 B/P (MAP) 117/62 (80) 119/60 (79) 120/58 (78) 120/58 (78) Pulse Ox 98 98 97 97 O2 Delivery Room Air Room Air Room Air Room Air 03/11/21 03/11/21 03/11/21 03/11/21 16:00 16:30 17:00 18:15 Temp 97.8 97.8 Pulse 63 62 62 63 Resp 16 14 16 B/P (MAP) 115/55 (75) 110/59 (76) 119/57 (77) 133/79 (97) Pulse Ox 96 95 98 99 O2 Delivery Room Air Room Air Room Air Room Air 03/11/21 03/11/21 03/11/21 03/12/21 19:30 20:05 23:29 03:45 Temp 97.7 97.7 97.7 97.7 97.7 97.7 Pulse 64 61 48 Resp 18 17 18 B/P (MAP) 139/64 (89) 103/56 (72) 96/52 (67) Pulse Ox 95 97 96 O2 Delivery Room Air Room Air Room Air Room Air 03/12/21 03/12/21 03/12/21 03/12/21 07:00 07:30 08:46 08:46 Temp 97.2 97.2 Pulse 51 51 51 Resp 16 B/P (MAP) 111/60 (77) 111/60 111/60 Pulse Ox 96 O2 Delivery Room Air Intake and Output 03/11/21 03/11/21 03/12/21 15:00 23:00 07:00 Intake Total 1000 ml 0 ml Output Total 400 ml Balance 1000 ml -400 ml Justifications for Admission Other Justification CHEO CHIN MD Mar 12, 2021 10:19
--- NOTE | 2021-03-12 10:25 | DISCH ---
DISCHARGE INSTRUCTIONS Condition on Discharge Condition on Discharge: Stable Activity After Discharge Activity Instructions for Disc: Resume previous activity Diet after Discharge Diet after Discharge: Diabetic No Calorie Level Contacting the after DC Call your doctor for: If your condition worsens Follow-Up Follow up with: later this week or next week Follow Up With: ct chest to be scheduled as out patient via dr.. chin's office CHEO CHIN MD Mar 12, 2021 10:25
--- NOTE | 2021-03-12 10:32 | PDOC ---
Provider Note Date of Service: DATE: 03/12/21 TIME: 10:31 Provider Note discharge summary dictated # [id number] Justifications for Admission Other Justification CHEO CHIN MD Mar 12, 2021 10:32
--- NOTE | 2021-03-12 12:46 | RAD ---
MRI BRAIN WO History:Reason: stroke, left weakness / Spl. Instructions: / History: Technique: Multiplanar, multi sequential MR imaging was performed of the brain without contrast. Comparison: CT March 11, 2021. MRI August 01, 2015 Findings: No acute infarct. No intracranial hemorrhage. No mass effect. No hydrocephalus. Mild brain parenchymal volume loss. Mild foci of FLAIR hyperintensities within the hemispheric white matter, likely within normal range for age. Imaged orbits are unremarkable. Imaged paranasal sinuses and mastoid air cells are clear. Impression: 1. No acute intracranial abnormality. Electronically signed by: Dave Harmon DO (03/12/2021 12:43 PM) [facility]
--- NOTE | 2021-03-12 13:21 | DS ---
DATE OF DISCHARGE: 03/12/2021 DATE OF ANTICIPATED DISMISSAL: 03/12/2021. The patient is in room 260. MDS NURSE: Navjot Mora MD. FINAL DIAGNOSES: 1. Imbalance due to vestibular dysfunction. 2. Acute ethmoid sinusitis. 3. 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 4. Diabetes mellitus type 2 with peripheral neuropathy. 5. Hypertension. 6. Hyperlipidemia. 7. Hypothyroidism. 8. Fibromyalgia. 9. Possible 1 cm left lower lobe lung nodule on a chest x-ray. HOSPITAL COURSE: The patient is a 75-year-old white female with a history of diabetes mellitus type 2 with peripheral neuropathy, treated with diet, hypertension, hyperlipidemia, hypothyroidism, fibromyalgia, history of Delgadillo's palsy in the past with persistent right-sided facial weakness, who was recently diagnosed with ethmoid sinusitis as noted on the MRI of the brain done on 02/14/2021 and her Ear, Nose and Throat doctors started her on Bactrim double strength 1 b.i.d. and prednisone taper prior to admission. She has been followed for her imbalance at the [facility] where she was evaluated and treated. The patient had a stressful conversation on the phone a couple of days prior to admission and has complained of numbness in the arms and legs. She had noted some worsening in the right facial weakness with a previous history of Delgadillo's palsy and she called me on the phone and I told her to go to the [facility] Emergency Room where she was evaluated. CAT scan of the head showed no acute abnormality. Laboratory tests and EKG were also unremarkable. The patient was admitted to the hospital and placed on telemetry and seen by Dr. Spring for Neurology consultation who felt she might have a conversion reaction and ordered an MRI of the brain, which will be done later today. She feels better. She has no focal weakness in arms or legs. testing is normal. No nystagmus. She does have a chronic right facial weakness due to her previous Delgadillo's palsy. She is able to ambulate, but does lose her balance taking short steps. She does have a walker at home and she did not fall. A chest x-ray showed a possible left lower lobe lung nodule 1 cm in size and we discussed that we will be doing an outpatient CAT scan of the chest without contrast to evaluate that. She had bilateral carotid Doppler, which showed no significant stenosis with mild plaque in the internal carotid arteries and a CAT scan of the head as mentioned showed no acute abnormality. MRI of the brain has not been done yet, but will be done later today. Plan is to dismiss her later today if the MRI of the brain is negative and she will follow up to see Dr. Sanchez in the office next week or the following week. She was told to use a walker at home to improve balance and we will do outpatient CAT scan of the chest without contrast to evaluate for possible left lower lobe lung nodule. DISCHARGE MEDICATIONS: She will be dismissed on Savella 50 mg b.i.d., alprazolam 0.5 mg b.i.d. and 1 mg at bedtime, aspirin 81 mg every day, atorvastatin 20 mg at bedtime, carvedilol 6.25 mg b.i.d., Cymbalta 60 mg every day, Pepcid 40 mg at bedtime, furosemide 40 mg every day, [place] 5/325 one every 6 hours p.r.n., levothyroxine 75 mcg every day, losartan 50 mg every day, multiple vitamin with minerals once a day, fish oil 1 gram daily, omeprazole 40 mg during the day, famotidine 40 mg at night, potassium chloride 10 mEq b.i.d., prednisone 30 mg every day, she will be on 20 mg every day for 3 days, 10 mg every day for 3 days and she will stop the prednisone. She will finish the Bactrim double strength 1 b.i.d., I think she has another 5-6 days left and trazodone 150 mg at bedtime. MARRY/JAMIE/LOERNA DR: Colleen TID: [id number]
--- NOTE | 2021-03-12 14:20 | PDOC ---
PROGRESS NOTES Date of Service DATE: 03/12/21 TIME: 14:16 Assessment Problems Medical Problems: (1) CVA (cerebral vascular accident) Status: Acute (2) Headache Status: Acute (3) UTI (urinary tract infection) Status: Acute High suspicion for conversion disorder, 2nd MRI in past month done, was negative [place]'s palsy Fibromyalgia Diabetic peripheral neuropathy. Nonspecific vestibular dysfunction, negative brain MRI recently, I do not have details of the [facility], but usually if they think a neurologist should be involved, they did not find anything they could work with. This could be a, this could be a combination of her fibromyalgia and peripheral neuropathy Plan Okay to discharge Follow-up with me as needed, she can tell [facility] that she has had her neurological evaluation. Subjective Feels back to normal, wants to go home Objective Vital Signs Date Time Temp Pulse Resp B/P (MAP) Pulse Ox O2 Delivery O2 Flow Rate FiO2 03/12/21 08:46 51 111/60 03/12/21 07:30 Room Air 03/12/21 07:00 97.2 16 96 97.2 Intake and Output 03/12/21 07:00 Intake Total 1000 ml Output Total 400 ml Balance 600 ml Intake Oral 0 ml IV Total 1000 ml Output Urine Total 400 ml PHYSICAL EXAM Alert. Oriented to time, place and person. PERRL. EOMI. CN: Right peripheral facial weakness, otherwise no focal findings. Muscle tone: normal. Muscle strength:5/5 DTR: 1+ Plantar reflex: flexor Gait: just a little unsteady, turns rapidly without problem Sensory exam: no abnormal findings. No cerebellar signs elicited. Review of Relevant I have reviewed the following items khadra (where applicable) has been applied. Labs Laboratory Tests Test 03/11/21 12:50 03/11/21 13:05 03/11/21 13:06 03/11/21 18:08 Urine Collection Type Unknown Urine Color Yellow Urine Clarity Clear Urine pH 6.0 (<5.0-8.0) Urine Specific [place] 1.010 (1.000-1.030) Urine Protein Negative mg/dL (NEG-TRACE) Urine Glucose (UA) Negative mg/dL (NEG) Urine Ketones (Stick) Negative mg/dL (NEG) Urine Blood Negative (NEG) Urine Nitrite Negative (NEG) Urine Bilirubin Negative (NEG) Urine Urobilinogen Dipstick 0.2 mg/dL (0.2 mg/dL) Urine Leukocyte Esterase Moderate (NEG) Urine RBC Occ /HPF (0-2) Urine WBC 5-10 /HPF (0-4) Urine Squamous Epithelial Cells Few /LPF Urine Bacteria Moderate /HPF (0-FEW) Urine Hyaline Casts Few /HPF Glucose (Fingerstick) 130 mg/dL (70-99) 101 mg/dL (70-99) White Blood Count 10.8 x10^3/uL (4.0-11.0) Red Blood Count 4.28 x10^6/uL (3.50-5.40) Hemoglobin 13.3 g/dL (12.0-15.5) Hematocrit 39.9 % (36.0-47.0) Mean Corpuscular Volume 93 fL (79-100) Mean Corpuscular Hemoglobin 31 pg (25-35) Mean Corpuscular Hemoglobin Concent 33 g/dL (31-37) Red Cell Distribution Width 13.2 % (11.5-14.5) Platelet Count 257 x10^3/uL (140-400) Neutrophils (%) (Auto) 59 % (31-73) Lymphocytes (%) (Auto) 32 % (24-48) Monocytes (%) (Auto) 8 % (0-9) Eosinophils (%) (Auto) 1 % (0-3) Basophils (%) (Auto) 1 % (0-3) Neutrophils # (Auto) 6.4 x10^3/uL (1.8-7.7) Lymphocytes # (Auto) 3.4 x10^3/uL (1.0-4.8) Monocytes # (Auto) 0.9 x10^3/uL (0.0-1.1) Eosinophils # (Auto) 0.1 x10^3/uL (0.0-0.7) Basophils # (Auto) 0.0 x10^3/uL (0.0-0.2) Sodium Level 138 mmol/L (136-145) Potassium Level 4.4 mmol/L (3.5-5.1) Chloride Level 100 mmol/L (98-107) Carbon Dioxide Level 32 mmol/L (21-32) Anion Gap 6 (6-14) Blood Urea Nitrogen 19 mg/dL (7-20) Creatinine 1.2 mg/dL (0.6-1.0) Estimated GFR (Cockcroft-Gault) 43.9 BUN/Creatinine Ratio 16 (6-20) Glucose Level 118 mg/dL (70-99) Calcium Level 8.9 mg/dL (8.5-10.1) Phosphorus Level 3.7 mg/dL (2.6-4.7) Magnesium Level 2.3 mg/dL (1.8-2.4) Total Bilirubin 0.8 mg/dL (0.2-1.0) Aspartate Amino Transf (AST/SGOT) 16 U/L (15-37) Alanine Aminotransferase (ALT/SGPT) 25 U/L (14-59) Alkaline Phosphatase 59 U/L (46-116) Troponin I Quantitative < 0.017 ng/mL (0.000-0.055) LY-Yno-W-Type Natriuretic Peptide 205 pg/mL (0-124) Total Protein 6.9 g/dL (6.4-8.2) Albumin 4.2 g/dL (3.4-5.0) Albumin/Globulin Ratio 1.6 (1.0-1.7) Test 03/11/21 18:45 03/11/21 20:32 03/12/21 06:45 03/12/21 08:01 Prothrombin Time 12.0 SEC (11.7-14.0) Prothromb Time International Ratio 0.9 (0.8-1.1) Glucose (Fingerstick) 120 mg/dL (70-99) 89 mg/dL (70-99) White Blood Count 8.0 x10^3/uL (4.0-11.0) Red Blood Count 4.09 x10^6/uL (3.50-5.40) Hemoglobin 12.8 g/dL (12.0-15.5) Hematocrit 38.4 % (36.0-47.0) Mean Corpuscular Volume 94 fL (79-100) Mean Corpuscular Hemoglobin 31 pg (25-35) Mean Corpuscular Hemoglobin Concent 33 g/dL (31-37) Red Cell Distribution Width 13.3 % (11.5-14.5) Platelet Count 218 x10^3/uL (140-400) Neutrophils (%) (Auto) 50 % (31-73) Lymphocytes (%) (Auto) 39 % (24-48) Monocytes (%) (Auto) 8 % (0-9) Eosinophils (%) (Auto) 3 % (0-3) Basophils (%) (Auto) 0 % (0-3) Neutrophils # (Auto) 4.0 x10^3/uL (1.8-7.7) Lymphocytes # (Auto) 3.1 x10^3/uL (1.0-4.8) Monocytes # (Auto) 0.6 x10^3/uL (0.0-1.1) Eosinophils # (Auto) 0.2 x10^3/uL (0.0-0.7) Basophils # (Auto) 0.0 x10^3/uL (0.0-0.2) Sodium Level 140 mmol/L (136-145) Potassium Level 3.9 mmol/L (3.5-5.1) Chloride Level 103 mmol/L (98-107) Carbon Dioxide Level 33 mmol/L (21-32) Anion Gap 4 (6-14) Blood Urea Nitrogen 17 mg/dL (7-20) Creatinine 1.0 mg/dL (0.6-1.0) Estimated GFR (Cockcroft-Gault) 54.2 Glucose Level 88 mg/dL (70-99) Calcium Level 9.0 mg/dL (8.5-10.1) Test 03/12/21 12:50 Glucose (Fingerstick) 168 mg/dL (70-99) Laboratory Tests Test 03/11/21 18:08 03/11/21 18:45 03/11/21 20:32 03/12/21 06:45 Glucose (Fingerstick) 101 mg/dL (70-99) 120 mg/dL (70-99) Prothrombin Time 12.0 SEC (11.7-14.0) Prothromb Time International Ratio 0.9 (0.8-1.1) White Blood Count 8.0 x10^3/uL (4.0-11.0) Red Blood Count 4.09 x10^6/uL (3.50-5.40) Hemoglobin 12.8 g/dL (12.0-15.5) Hematocrit 38.4 % (36.0-47.0) Mean Corpuscular Volume 94 fL (79-100) Mean Corpuscular Hemoglobin 31 pg (25-35) Mean Corpuscular Hemoglobin Concent 33 g/dL (31-37) Red Cell Distribution Width 13.3 % (11.5-14.5) Platelet Count 218 x10^3/uL (140-400) Neutrophils (%) (Auto) 50 % (31-73) Lymphocytes (%) (Auto) 39 % (24-48) Monocytes (%) (Auto) 8 % (0-9) Eosinophils (%) (Auto) 3 % (0-3) Basophils (%) (Auto) 0 % (0-3) Neutrophils # (Auto) 4.0 x10^3/uL (1.8-7.7) Lymphocytes # (Auto) 3.1 x10^3/uL (1.0-4.8) Monocytes # (Auto) 0.6 x10^3/uL (0.0-1.1) Eosinophils # (Auto) 0.2 x10^3/uL (0.0-0.7) Basophils # (Auto) 0.0 x10^3/uL (0.0-0.2) Sodium Level 140 mmol/L (136-145) Potassium Level 3.9 mmol/L (3.5-5.1) Chloride Level 103 mmol/L (98-107) Carbon Dioxide Level 33 mmol/L (21-32) Anion Gap 4 (6-14) Blood Urea Nitrogen 17 mg/dL (7-20) Creatinine 1.0 mg/dL (0.6-1.0) Estimated GFR (Cockcroft-Gault) 54.2 Glucose Level 88 mg/dL (70-99) Calcium Level 9.0 mg/dL (8.5-10.1) Test 03/12/21 08:01 03/12/21 12:50 Glucose (Fingerstick) 89 mg/dL (70-99) 168 mg/dL (70-99) Medications Current Medications Sodium Chloride 1,000 ml @ 1,000 mls/hr 1X ONCE IV Last administered on 03/11/21at 14:28; Start 03/11/21 at 14:15; Stop 03/11/21 at 15:14; Status DC Prochlorperazine Edisylate (Compazine) 10 mg 1X ONCE IV Last administered on 03/11/21at 14:29; Start 03/11/21 at 14:15; Stop 03/11/21 at 14:21; Status DC Diphenhydramine HCl (Benadryl) 25 mg 1X ONCE IVP Last administered on 03/11/21at 14:29; Start 03/11/21 at 14:15; Stop 03/11/21 at 14:21; Status DC Nitrofurantoin Macrocrystals (Macrobid) 100 mg 1X ONCE PO Last administered on 03/11/21at 15:23; Start 03/11/21 at 14:15; Stop 03/11/21 at 14:21; Status DC Clopidogrel Bisulfate (Plavix) 75 mg 1X ONCE PO ; Start 03/11/21 at 14:45; Stop 03/11/21 at 14:46; Status Cancel Ondansetron HCl (Zofran) 4 mg PRN Q8HRS PRN IV NAUSEA/VOMITING; Start 03/11/21 at 14:45; Stop 03/12/21 at 14:44 Fentanyl Citrate (Fentanyl 2ml Vial) 50 mcg PRN Q1HR PRN IV PAIN; Start 03/11/21 at 14:45; Stop 03/12/21 at 14:44 Acetaminophen (Tylenol) 650 mg PRN Q4HRS PRN PO FEVER > 100.3'F; Start 03/11/21 at 14:45; Stop 03/11/21 at 20:03; Status DC Clopidogrel Bisulfate (Plavix) 75 mg 1X ONCE PO Last administered on 03/11/21at 21:07; Start 03/11/21 at 19:45; Stop 03/11/21 at 19:46; Status DC Acetaminophen (Tylenol) 650 mg PRN Q6HRS PRN PO MILD PAIN / TEMP > 100.3'F; Start 03/11/21 at 20:00 Alprazolam (Xanax) 0.5 mg BID92 PO Last administered on 03/12/21at 08:44; Start 03/12/21 at 09:00 Alprazolam (Xanax) 1 mg HS PO Last administered on 03/11/21at 21:07; Start 03/11/21 at 21:00 Aspirin (Ecotrin) 81 mg DAILY PO Last administered on 03/12/21at 08:44; Start 03/12/21 at 09:00 Atorvastatin Calcium (Lipitor) 20 mg HS PO Last administered on 03/11/21at 21:07; Start 03/11/21 at 21:00 Carvedilol (Coreg) 6.25 mg BIDWMEALS PO Last administered on 03/12/21at 08:46; Start 03/12/21 at 08:00 Cyclobenzaprine HCl (Flexeril) 10 mg TID PO Last administered on 03/12/21at 08:44; Start 03/11/21 at 21:00 Furosemide (Lasix) 40 mg DAILY PO Last administered on 03/12/21at 08:45; Start 03/12/21 at 09:00 Acetaminophen/ Hydrocodone Bitart (Lortab 5/325) 1 tab PRN Q6HRS PRN PO MODERATE TO SEVERE PAIN; Start 03/11/21 at 20:00 Ketoconazole (Nizoral 2% Shampoo) 1 brenda WEEKLY PRN TP dry scalp; Start 03/11/21 at 20:00 Lactobacillus Rhamnosus (Culturelle) 1 cap DAILY PO Last administered on 03/12/21at 08:45; Start 03/12/21 at 09:00 Levothyroxine Sodium (Synthroid) 75 mcg DAILY06 PO Last administered on 03/12/21at 06:08; Start 03/12/21 at 06:00 Prednisone (Prednisone) 30 mg DAILY PO Last administered on 03/12/21at 08:45; Start 03/12/21 at 09:00 Trimethoprim/ Sulfamethoxazole (Bactrim Ds) 1 tab BID PO Last administered on 03/12/21at 08:44; Start 03/11/21 at 21:00 Trazodone HCl (Desyrel) 150 mg HS PO Last administered on 03/11/21at 21:06; Start 03/11/21 at 21:00 Duloxetine HCl (Cymbalta) 60 mg DAILY PO Last administered on 03/12/21at 08:44; Start 03/12/21 at 09:00 Famotidine (Pepcid) 40 mg HS PO Last administered on 03/11/21at 21:06; Start 03/11/21 at 21:00 Non-Formulary Medication (Glucosamine Hcl/ Chondr Miller A Na (Cidaflex Tablet)) 1 tab BIDWMEALS PO ; Start 03/12/21 at 08:00; Status Cancel Losartan Potassium (Cozaar) 50 mg DAILY PO ; Start 03/12/21 at 09:00 Non-Formulary Medication (Milnacipran Hcl (Savella)) 50 mg BID PO ; Start 03/11/21 at 21:00; Status UNV Multivitamins (Thera M Plus) 1 tab DAILY PO Last administered on 03/12/21at 08:44; Start 03/12/21 at 09:00 Nystatin (Mycostatin) 1 brenda BID TP ; Start 03/11/21 at 21:00 Fish Oil (Fish Oil) 1,000 mg DAILY PO Last administered on 03/12/21at 08:45; Start 03/12/21 at 09:00 Pantoprazole Sodium (Protonix) 40 mg DAILYAC PO Last administered on 03/12/21at 06:09; Start 03/12/21 at 07:30 Potassium Chloride (Klor-Con) 10 meq BIDWMEALS PO Last administered on 03/12/21at 08:45; Start 03/12/21 at 08:00 Triamcinolone Acetonide (Kenalog 0.1%) 1 brenda PRN BID PRN TP ITCHING; Start 03/11/21 at 21:00 Non-Formulary Medication (Turmeric Root Extract (Turmeric)) 538 mg DAILY PO ; Start 03/12/21 at 09:00; Status UNV Triamcinolone Acetonide (Kenalog 0.1%) 1 brenda BID TP ; Start 03/11/21 at 21:00 Active Scripts Active [place] 5-325 Tablet (Acetaminophen/Hydrocodone Bitart) 1 Each Tablet 1 Tab PO PRN Q6HRS PRN Reported Cidaflex Tablet (Glucosamine Hcl/Chondr Miller A Na) 1 Each Tablet 1 Tab PO BID 30 Days Culturelle (Lactobacillus Rhamnosus Gg) 1 Each Cap.sprink 1 Each PO DAILY Turmeric (Turmeric Root Extract) 538 Mg Capsule 538 Mg PO DAILY Fish Oil 1,200 Mg Softgel ([place]-3S/Dha/Epa/Fish Oil) 1 Each Capsule 1 Each PO DAILY Triamcinolone Acetonide 80 Gm Oint...g. 1 Brenda TP BID PRN Ketoconazole 120 Ml Shampoo 1 Brenda TP TWICE WEEKLY 30 Days with at least 3 days between each shampooing Nystatin-Triamcinolone Cream (Nystatin/Triamcin) 15 Gm Cream..g. 1 Brenda TP BID Cyclobenzaprine Hcl 10 Mg Tablet 10 Mg PO TID Atorvastatin Calcium 20 Mg Tablet 20 Mg PO HS Prednisone (Prednisone) 10 Mg Tablet 30 Mg PO DAILY Cymbalta (Duloxetine Hcl) 60 Mg Capsule.dr 60 Mg PO DAILY Klor-Con 10 (Potassium Chloride) 10 Meq Tablet.er 10 Meq PO BID Furosemide 40 Mg Tablet 40 Mg PO DAILY Savella (Milnacipran Hcl) 50 Mg Tablet 50 Mg PO BID Alprazolam 1 Mg Tablet 1 Mg PO HS Carvedilol (Carvedilol) 6.25 Mg Tablet 6.25 Mg PO BIDWMEALS Bactrim Ds Tablet (Sulfamethoxazole/Trimethoprim) 1 Each Tablet 1 Each PO BID Famotidine 40 Mg Tablet 40 Mg PO HS Omeprazole 40 Mg Capsule.dr 40 Mg PO DAILY Alprazolam 0.5 Mg Tablet 1 Tab PO BID92 Multivitamins (Multivitamin) 1 Each Tablet 1 Tab PO DAILY Aspir 81 (Aspirin) 81 Mg Tablet.dr 81 Mg PO DAILY Losartan Potassium 100 Mg Tablet 50 Mg PO DAILY Trazodone Hcl 50 Mg Tablet 150 Mg PO HS Levothyroxine Sodium 75 Mcg Tablet 75 Mcg PO DAILYAC Vitals/I & O Vital Sign - Last 24 Hours 03/11/21 03/11/21 03/11/21 03/11/21 14:32 15:00 15:24 16:00 Temp 97.8 97.8 Pulse 57 63 64 63 Resp 14 22 16 B/P (MAP) 119/60 (79) 120/58 (78) 120/58 (78) 115/55 (75) Pulse Ox 98 97 97 96 O2 Delivery Room Air Room Air Room Air Room Air 03/11/21 03/11/21 03/11/21 03/11/21 16:30 17:00 18:15 19:30 Temp 97.8 97.8 Pulse 62 62 63 Resp 14 16 B/P (MAP) 110/59 (76) 119/57 (77) 133/79 (97) Pulse Ox 95 98 99 O2 Delivery Room Air Room Air Room Air Room Air 03/11/21 03/11/21 03/12/21 03/12/21 20:05 23:29 03:45 07:00 Temp 97.7 97.7 97.7 97.2 97.7 97.7 97.7 97.2 Pulse 64 61 48 51 Resp 18 17 18 16 B/P (MAP) 139/64 (89) 103/56 (72) 96/52 (67) 111/60 (77) Pulse Ox 95 97 96 96 O2 Delivery Room Air Room Air Room Air 03/12/21 03/12/21 03/12/21 07:30 08:46 08:46 Pulse 51 51 B/P (MAP) 111/60 111/60 O2 Delivery Room Air Intake and Output 03/11/21 03/11/21 03/12/21 15:00 23:00 07:00 Intake Total 1000 ml 0 ml Output Total 400 ml Balance 1000 ml -400 ml Images MRI BRAIN WO History:Reason: stroke, left weakness / Spl. Instructions: / History: Technique: Multiplanar, multi sequential MR imaging was performed of the brain w ithout contrast. Comparison: CT March 11, 2021. MRI August 01, 2015 Findings: No acute infarct. No intracranial hemorrhage. No mass effect. No hydrocephalus. Mild brain parenchymal volume loss. Mild foci of FLAIR hyperintensities within the hemispheric white matter, likely within normal range for age. Imaged orbits are unremarkable. Imaged paranasal sinuses and mastoid air cells are clear. Impression: 1. No acute intracranial abnormality. Justicifation of Admission Dx: Justifications for Admission: Justification of Admission Dx: N/A ROSA CORTEZ MD Mar 12, 2021 14:20
--- NOTE | 2021-03-12 15:03 | NUR ---
Pt alert and oriented throughout shift. Pt stated she feels back to baseline. No NIH required at discharge. This was not a stroke or TIA per MD. Pt tolerated IV removal. Catheter tip intact, pressure applied, bleeding stopped, bandage applied. All medication times reviewd with patient. I did not give patient 1400 Flexaril or Xanax because patient drove herself to the ER and plans to drive herself home. Pt given education on using a walker at home. Pt states she has a walker at home. All questions answered prior to discharge. Pt and all her belongings taken out to [facility] in wheelchair by [employer].
== END 2021-03-12 15:07 | disposition home or self-care (01) | DRG 880 ==
LOC: ER 12:24 → ED HOLD 15:54 → 2 SOUTH 18:15
PROVIDERS: ADMIT Internal Medicine; ATTEND Internal Medicine
DX: F44.9 Dissociative and conversion disorder, unspecified (principal); N39.0 Urinary tract infection, site not specified; E03.9 Hypothyroidism, unspecified; E11.42 Type 2 diabetes mellitus with diabetic polyneuropathy; E78.5 Hyperlipidemia, unspecified; E87.6 Hypokalemia; G51.0 Bell's palsy; H90.5 Unspecified sensorineural hearing loss; I10 Essential (primary) hypertension; J01.20 Acute ethmoidal sinusitis, unspecified; J32.2 Chronic ethmoidal sinusitis; M79.7 Fibromyalgia; Z82.49 Family history of ischemic heart disease and other diseases of the circulatory system; Z86.718 Personal history of other venous thrombosis and embolism; Z86.73 Personal history of transient ischemic attack (TIA), and cerebral infarction without residual deficits; Z87.19 Personal history of other diseases of the digestive system; Z90.49 Acquired absence of other specified parts of digestive tract; F32.9 Major depressive disorder, single episode, unspecified; F41.9 Anxiety disorder, unspecified; G47.33 Obstructive sleep apnea (adult) (pediatric); K21.9 Gastro-esophageal reflux disease without esophagitis; K57.90 Diverticulosis of intestine, part unspecified, without perforation or abscess without bleeding; M19.90 Unspecified osteoarthritis, unspecified site; M47.816 Spondylosis without myelopathy or radiculopathy, lumbar region; M48.061 Spinal stenosis, lumbar region without neurogenic claudication; Z79.899 Other long term (current) drug therapy; Z79.01 Long term (current) use of anticoagulants; Z79.4 Long term (current) use of insulin; Z88.8 Allergy status to other drugs, medicaments and biological substances; R26.89 Other abnormalities of gait and mobility; H83.09 Labyrinthitis, unspecified ear; R91.1 Solitary pulmonary nodule
CPT/HCPCS: 36415; 70450; 70551; 71045; 80048; 80053; 81001; 82962; 83735; 83880; 84100; 84484; 85025; 85610; 87086; 93005; 93880; 96361; 96374; 96375; J0780; J1200; J3480; J7030; J7512; 99285-25; G0378